=== PATIENT | female | born 1985 | race Caucasian/White ===

== ENCOUNTER → 2018-05-10 12:17 | Outpatient (CLI) | payer OTHER, SELFPAY ==
[2018-05-10 13:16] LABS: T4 Free Direct 0.79 ng/dL (0.76-1.46); Thyroid Stim Hormone (TSH) 2.09 uIU/mL (0.358-3.74)
== END ==
PROVIDERS: Family Provider Family Medicine; PCP Family Medicine; Visit Provider Obstetrics & Gynecology
DX: L65.9 Nonscarring hair loss, unspecified (principal)
CPT/HCPCS: 36415; 84439; 84443

== ENCOUNTER → 2018-06-20 09:08 | Outpatient (CLI) | payer OTHER, SELFPAY ==
[2018-06-20 09:47] LABS: Absolute Lymphocyte Count 1.65 X10^3/ul (0.83-4.51); Absolute Neutrophil Count 3.8 X10^3/uL (2.0-7.7); Basophil# 0.01 X10^3/uL; Basophil% 0.2 % (0-1); Eosinophil# 0.06 X10^3/uL; Hematocrit 40.6 % (37-47); Hemoglobin 13.6 g/dl (12.0-15.0); Lymphocyte # 1.65 X10^3/ul (4.0); Lymphocyte % 28.2 % (19-41); Mean Corp Hgb Conc 33.5 g/gl (32-36); Mean Corpuscular Hgb 29.8 pg (27.0-32.0); Mean Platelet Vol. 10.2 fl (6.2-12.0); Monocyte# 0.36 X10^3/uL; Monocyte% 6.2 % (0-10); Neutrophil # 3.76 X10^3/uL (2.7-7.7); Neutrophil % 64.2 % (47-70); Platelet Count 254 K/mm3 (150-450); RBC Distribution Width SD 38.9 fl (35.1-43.9); Red Blood Count 4.56 M/mm3 (4.2-5.4); White Blood Count 5.9 K/mm3 (4.4-11.0)
[2018-06-20 10:16] LABS: POSITIVE COUNT NO; POSITIVE DIFFERENTIAL NO; POSITIVE MORPHOLOGY NO
[2018-06-21 04:36] LABS: Rapid Plasmin Reagin (RPR) NONREACTIVE (NONREACTIVE)
[2018-06-21 11:12] LABS: HEPATITIS B SURFACE AG Negative (Negative)
[2018-06-21 12:26] LABS: HIV - WCH Non-Reactive (Nonreactive); Rubella IgG 15.8 IU/mL
== END ==
PROVIDERS: Family Provider Family Medicine; PCP Family Medicine; Visit Provider Obstetrics & Gynecology
DX: Z34.90 Encounter for supervision of normal pregnancy, unspecified, unspecified trimester (principal)
CPT/HCPCS: 36415; 85025; 86592; 86703; 86762; 86850; 86900; 87340

== ENCOUNTER → 2018-06-20 18:16 | Outpatient (CLI) | payer OTHER, SELFPAY ==
[2018-06-20 21:00] LABS: Chlamydia Trachomatis by PCR Negative (Negative); Neisserai gonorrhoeae by PCR Negative (Negative); Probe Check PASS; Sample Adequacy Control PASS; Specimen Processing Control PASS
== END ==
PROVIDERS: Visit Provider Obstetrics & Gynecology
DX: Z34.90 Encounter for supervision of normal pregnancy, unspecified, unspecified trimester (principal)
CPT/HCPCS: 87086; 87088; 87491; 87591

== ENCOUNTER → 2018-07-08 14:11 | Outpatient (CLI) | payer OTHER, SELFPAY | PROVIDERS: Family Provider Family Medicine; PCP Family Medicine; Visit Provider Obstetrics & Gynecology | DX: Z34.81 Encounter for supervision of other normal pregnancy, first trimester (principal) | CPT/HCPCS: 36415 ==

== ENCOUNTER → 2018-11-15 08:51 | Outpatient (CLI) | payer OTHER, SELFPAY ==
[2018-11-15 08:24] VITALS: BMI 31.9
[2018-11-15 09:58] LABS: Absolute Lymphocyte Count 1.49 X10^3/ul (0.83-4.51); Absolute Neutrophil Count 7.8 X10^3/uL (2.0-7.7); Eosinophil# 0.05 X10^3/uL; Eosinophils% 0.5 % (0-5); Hematocrit 34.4 % (37-47); Hemoglobin 11.5 g/dl (12.0-15.0); Lymphocyte # 1.49 X10^3/ul (4.0); Mean Corp Hgb Conc 33.4 g/gl (32-36); Mean Corpuscular Hgb 29.3 pg (27.0-32.0); Mean Corpuscular Volume 87.5 fL (81-99); Mean Platelet Vol. 10.3 fl (6.2-12.0); Monocyte# 0.58 X10^3/uL; Monocyte% 5.8 % (0-10); Neutrophil % 78.4 % (47-70); POSITIVE COUNT NO; POSITIVE DIFFERENTIAL NO; POSITIVE MORPHOLOGY NO; Platelet Count 236 K/mm3 (150-450); RBC Distribution Width SD 38.8 fl (35.1-43.9); Red Blood Count 3.93 M/mm3 (4.2-5.4)
[2018-11-15 10:05] LABS: Glucose Challenge Gest 1H 50g 123 mg/dL (70-140)
== END ==
PROVIDERS: Family Provider Family Medicine; PCP Family Medicine; Referring Provider Obstetrics & Gynecology; Visit Provider Obstetrics & Gynecology
DX: Z34.90 Encounter for supervision of normal pregnancy, unspecified, unspecified trimester (principal)
CPT/HCPCS: 36415; 82950; 85025

== ENCOUNTER 2018-12-13 09:28 | Outpatient (CLI) | payer OTHER, SELFPAY ==
[2018-12-13 09:05] VITALS: BMI 31.9
[2018-12-13 09:45] VITALS: BMI 33.8
--- NOTE | 2018-12-17 19:26 | OB.TRI.HP_ITS ---
- Problem List (1) Monochorionic diamniotic twin gestation Status: Acute Qualifiers: Comment: comanagement with MFM, q 4 week growth us and weekly bpp 32 weeks on; MFM US 11/28/18- growth q4wks, weekly NST after 32 weeks deliver at 37 weeks. (2) Status: Acute Qualifiers: Comment: NIPT normal. Anatomy survey performed but limited due to late gestational age. No gross anomalies. Persistent renal pelvis dilation Twin B- refer to treatment.Continue evaluation for twin to twin transfusion every 2 weeks. (3) Supervision of normal Status: Acute Qualifiers: Comment: PRR EDMUNDO 01/31/19 boys Amos Ledezma Sergio History of Present Illness Date of Service: 12/13/18 Was patient seen by the physician?: No Reason For Visit: NST History of Present Illness: nst Allergies No Known Allergies Allergy (Verified 12/13/18 09:46) - Pertinent Past Medical History Medical History: Past Medical History (Last Reviewed 12/13/18 @ 09:04 by Aileen Sampson) Abnormal Pap smear of cervix Surgical History: Past Surgical History (Last Reviewed 12/13/18 @ 09:04 by Aileen Sampson) History of colposcopy S/P dilation and curettage NST - FHR Rate Baby A Baseline: 140 Variability:: Moderate Accelerations:: 15 x 15 Decelerations:: None NST Reactive:: Yes FHR Category:: Category I Uterine Activity:: no regular - FHR Rate Baby B Baseline: 140 Variability:: Moderate Accelerations:: 15 x 15 Decelerations:: None NST Reactive:: Yes FHR Category:: Category I Impression/Plan reactive nst x 2
--- OUTSIDE RECORDS SUMMARY | 2019-02-16 17:00 | XMS RPT_ITS ---
:1985 Author Organization OHIP Support Name Relationship Address Phone NORM WYATT Unavailable [address] + [place] [address] KALEIDOSCOPE Unavailable [address] + [place] [address] EDMUNDO, NORM Unavailable [address] + [place] [address] KALEIDOSCOPE Unavailable [address] + [place] [address] EDMUNDO, NORM Unavailable [address] + [place] [address] KALEIDOSCOPE Unavailable [address] + [place] [address] EDMUNDO, SHWETA Unavailable [address] + [place] [address] EDMUNDO, SHWETA Unavailable [address] + [place] [address] EDMUNDO, NORM Unavailable [address] + [place] [address] KALEIDOSCOPE Unavailable [address] + [place] [address] EDMUNDO, NORM Unavailable [address] + [place] [address] KALEIDOSCOPE Unavailable [address] + [place] [address] EDMUNDO, SHWETA Unavailable [address] + [place] [address] EDMUNDO, NORM Unavailable [address] + [place] [address] KALEIDOSCOPE Unavailable [address] + [place] [address] EDMUNDO, SHWETA Unavailable [address] + [place] [address] EDMUNDO, NORM Unavailable [address] + [place] [address] KALEIDOSCOPE Unavailable [address] + [place] [address] EDMUNDO, NORM Unavailable [address] + [place] [address] KALEIDOSCOPE Unavailable [address] + [place] [address] EDMUNDO, SHWETA Unavailable [address] + [place] [address] EDMUNDO, SHWETA Unavailable [address] + [place] [address] EDMUNDO, NORM Unavailable [address] + [place] [address] KALEIDOSCOPE Unavailable [address] + [place] [address] EDMUNDO, SHWETA Unavailable [address] + [place] [address] EDMUNDO, NORM Unavailable [address] + [place] [address] KALEIDOSCOPE Unavailable [address] + [place] [address] EDMUNDO, SHWETA Unavailable [address] + [place] [address] EDMUNDO, NORM Unavailable [address] + [place] [address] KALEIDOSCOPE Unavailable [address] + [place] [address] EDMUNDO, SHWETA Unavailable [address] + [place] [address] EDMUNDO, SHWETA Unavailable [address] + [place] [address] EDMUNDO, NORM Unavailable [address] + [place] [address] KALEIDOSCOPE Unavailable [address] + [place] [address] EDMUNDO, NORM Unavailable [address] + [place] [address] KALEIDOSCOPE Unavailable [address] + [place] [address] EDMUNDO, NORM Unavailable [address] + [place] [address] KALEIDOSCOPE Unavailable [address] + [place] [address] EDMUNDO, NORM Unavailable [address] + [place] [address] KALEIDOSCOPE Unavailable [address] + [place] [address] EDMUNDO, NORM Unavailable [address] + [place] [address] KALEIDOSCOPE Unavailable [address] + [place] [address] EDMUNDO, NORM Unavailable [address] + [place] [address] KALEIDOSCOPE Unavailable [address] + [place] [address] EDMUNDO, NORM Unavailable [address] + [place] [address] KALDIDOSCOPE Unavailable [address] + [place] [address] EDMUNDO, NORM Unavailable [address] + [place] [address] RENAISSANCE SALON Unavailable . + [place] [address] EDMUNDO, NORM Unavailable [address] + [place] [id number] RENAISSANCE SALON Unavailable . + [place] [address] EDMUNDO, NORM Unavailable [address] [facility] [address] + [place] [address] RENAISSANCE SALON Unavailable / + [place] [address] Care Team Providers Name Role Phone MARTÍNEZ MARIAH Attending Unavailable SALENA RODRIGUEZ Referring Unavailable NO PRIMARY MD CATHLEEN Primary Care Unavailable TOMAS TELLEZ Attending Unavailable SALENA RODRIGUEZ Referring Unavailable NO PRIMARY MD CATHLEEN Primary Care Unavailable TOMAS TELLEZ Attending Unavailable MARCANTHONY, SALENA E Referring Unavailable NO PRIMARY CARE, Primary Care Unavailable YI ROJAS Attending Unavailable MARCANTHONY, SALENA E Referring Unavailable NO PRIMARY CARE, Primary Care Unavailable YI ROJAS Attending Unavailable MARCANTHONY, SALENA E Referring Unavailable NO PRIMARY CARE, Primary Care Unavailable TOMAS TELLEZ Attending Unavailable MARCANTHONY, SALENA E Referring Unavailable NO PRIMARY CARE, Primary Care Unavailable JASMINA KOCH Attending Unavailable MARCANTHONY, SALENA E Referring Unavailable NO PRIMARY CARE, Primary Care Unavailable MARIAH MARTÍNEZ Attending Unavailable MARCANTHONY, SALENA E Referring Unavailable NO PRIMARY CARE, Primary Care Unavailable TOMAS TELLEZ Attending Unavailable MARCANTHONY, SALENA E Referring Unavailable NO PRIMARY CARE, Primary Care Unavailable MARIAH MARTÍNEZ Attending Unavailable MARCANTHONY, SALENA E Referring Unavailable NO PRIMARY CARE, Primary Care Unavailable MARIAH MARTÍNEZ Attending Unavailable MARCANTHONY, SALENA E Referring Unavailable NO PRIMARY CARE, Primary Care Unavailable Marcanthony, Salena Attending Unavailable Jolliff, Giovana Referring Unavailable Marcanthony, Salena Attending Unavailable Marcanthony, Salena Referring Unavailable Jolliff, Giovana Primary Care Unavailable Marcanthony, Salena Attending Unavailable Jolliff, Giovana Referring Unavailable Courtney Vuong Attending Unavailable Jolliff, Giovana Referring Unavailable Marcanthony, Salena Attending Unavailable Marcanthony, Salena Referring Unavailable Jolliff, Giovana Primary Care Unavailable Marcanthony, Salena Attending Unavailable Marcanthony, Salena Referring Unavailable Jolliff, Giovana Primary Care Unavailable Marcanthony, Salena Consulting Unavailable Marcanthony, Salena Attending Unavailable Marcanthony, Salena Referring Unavailable Jolliff, Giovana Primary Care Unavailable Marcanthony, Salena Attending Unavailable Marcanthony, Salena Referring Unavailable Jolliff, Giovana Primary Care Unavailable Marcanthony, Salena Consulting Unavailable Marcanthony, Salena Attending Unavailable Jolliff, Giovana Referring Unavailable Jolliff, Giovana Primary Care Unavailable Marcanthony, Salena Attending Unavailable Marcanthony, Salena Referring Unavailable Jolliff, Giovana Primary Care Unavailable Marcanthony, Salena Attending Unavailable Jolliff, Giovana Referring Unavailable Jolliff, Giovana Primary Care Unavailable Marcanthony, Salena Attending Unavailable Marcanthony, Salena Referring Unavailable Jolliff, Giovana Primary Care Unavailable Marcanthony, Salena Attending Unavailable Jolliff, Giovana Primary Care Unavailable Marcanthony, Salena Referring Unavailable Marcanthony, Salena Attending Unavailable Jolliff, Giovana Referring Unavailable Marcanthony, Salena Attending Unavailable Marcanthony, Salena Referring Unavailable Jolliff, Giovana Primary Care Unavailable Marcanthony, Salena Attending Unavailable Jolliff, Giovana Referring Unavailable Jolliff, Giovana Primary Care Unavailable Marcanthony, Salena Attending Unavailable Jolliff, Giovana Referring Unavailable Marcanthony, Salena Attending Unavailable Jolliff, Giovana Referring Unavailable Marcanthony, Salena Attending Unavailable Jolliff, Giovana Referring Unavailable [place], Courtney Attending Unavailable Jolliff, Giovana Referring Unavailable Marcanthony, Salena Attending Unavailable Jolliff, Giovana Referring Unavailable PROBLEMS PROBLEMS DATE TYPE CONDITION / CODE ATTENDING STATUS SOURCE 12/13/2018 Unknown O30.033 - Twin Courtney Vuong Active [place] , [facility] monochorionic/diam Hospital niotic, third Repository trimester / O30.033(ICD-10) 12/13/2018 Unknown Z34.03 - Encounter Courtney Vuong Active [place] for supervision of [facility] normal first Hospital , third Repository trimester / Z34.03(ICD-10) 12/13/2018 Unknown Z3A.33 - 33 weeks Courtney Vuong Active [place] gestation of [facility] / Hospital Z3A.33(ICD-10) Repository 11/29/2018 Unknown Z3A.31 - 31 weeks Marcanthony, Active [place] gestation of [facility] / Hospital Z3A.31(ICD-10) Repository 11/15/2018 Unknown Z34.90 - Encounter Marcanthony, Active [place] for supervision of [facility] normal , Hospital unspecified, Repository unspecified trimester / Z34.90(ICD-10) 11/15/2018 Unknown Z23 - Encounter Marcanthony, Active [place] for immunization / [facility] Z23(ICD-10) Hospital Repository 11/15/2018 Unknown Z3A.29 - 29 weeks Marcanthony, Active [place] gestation of [facility] / Hospital Z3A.29(ICD-10) Repository 11/15/2018 Unknown Z36.9 - Encounter Marcanthony, Active [place] for [facility] screening, Hospital unspecified / Repository Z36.9(ICD-10) 10/16/2018 Unknown O30.032 - Twin Marcanthony, Active [place] , [facility] monochorionic/diam Hospital niotic, second Repository trimester / O30.032(ICD-10) 10/16/2018 Unknown Z34.02 - Encounter Marcanthony, Active [place] for supervision of [facility] normal first Hospital , second Repository trimester / Z34.02(ICD-10) 10/16/2018 Unknown Z3A.24 - 24 weeks Marcanthony, Active [place] gestation of [facility] / Hospital Z3A.24(ICD-10) Repository 09/17/2018 Unknown Z3A.20 - 20 weeks Marcanthony, Active [place] gestation of [facility] / Hospital Z3A.20(ICD-10) Repository 08/20/2018 Unknown Z3A.16 - 16 weeks Marcanthony, Active [place] gestation of [facility] / Hospital Z3A.16(ICD-10) Repository 07/22/2018 Unknown Z34.01 - Encounter Marcanthony, Active [place] for supervision of [facility] normal first Hospital , first Repository trimester / Z34.01(ICD-10) 07/22/2018 Unknown O30.031 - Twin Marcanthony, Active [place] , [facility] monochorionic/diam Hospital niotic, first Repository trimester / O30.031(ICD-10) 07/22/2018 Unknown Z3A.12 - 12 weeks Marcanthony, Active [place] gestation of [facility] / Hospital Z3A.12(ICD-10) Repository 06/20/2018 Unknown O30.091 - Twin Marcanthony, Active [place] , unable [facility] to determine Hospital number of placenta Repository and number of amniotic sacs, first trimester / O30.091(ICD-10) 06/20/2018 Unknown Z3A.01 - Less than Marcanthony, Active [place] 8 weeks gestation [facility] of / Hospital Z3A.01(ICD-10) Repository 05/10/2018 Unknown L65.9 - Marcanthony, Active [place] Nonscarring hair [facility] loss, unspecified Hospital / L65.9(ICD-10) Repository PROCEDURES PROCEDURES No Procedure Records FoundRESULTS RESULTS INVASIVE PHYSICIAN OFFICE VISIT Observed: 12/13/2018 Status: F Source: [place] REPORT 9:21 AM [facility] REPOSITORY [facility] [address] [place] [address] OFFICE VISIT Date of Service: 12/13/18 MR#: [id number] Acct: [id number] Name: SWHETA WYATT Rep #: [id number] : 1985 Provider: JANEEN Vuong Age/Sex: 33/F Location: [facility] [place] Status: Signed Intake Vital Signs12/13/18 Body Mass Index (BMI) 31.9 12/13/18 Height 5 ft 7 in 12/13/18 Weight: 217 lb 12/13/18 Body Mass Index (BMI) 34.0 12/13/18 Blood Pressure 110/72 Intake Visit Reasons: 32 WEEKS Map Colorer Required: No Is patient in pain?: No Allergies No Known Allergies Allergy (Verified 12/13/18 09:04) Medications docosahexanoic acid 200 mg capsule mg PO 05/10/18 [History Confirmed 12/13/18] Last Menstral Period: 03/30/18 Zika: Zika virus screening: Negative : No PFSH PFSH Medical History Abnormal Pap smear of cervix (Acute) Surgical History History of colposcopy (Resolved) S/P dilation and curettage (Resolved) Family History Grandfather Lymphoma Mother Hypertension Social History Smoking Status: Never smoker alcohol intake: current details: occasionally substance use type: does not use caffeine: No what type of physical activity do you participate in: other details: crossfit frequency: 5-6 times per week seatbelt use: always do you feel safe at home: Yes additional social history: Xvkkprs-Dvcddk-Hadcvxzfojrwbu of [employer] 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 OB Visit EDMUNDO Calculator Estimated Delivery Date 01/31/19 Based on LMP (certain) 04/26/18 Current WG 33w 0d Number 2 Expected Delivery Route/Plan Specific Issue/Plans flu vaccine: given tdap vaccine: given rhogam: na LARC form signed: declines labor support person: Norm pain management: epidural cut cord/dad catch: yes? : yes PP control planned: pill discussed possible routes of delivery and associated risks: [] special requests: [] Initial Weight: 163 lb Date Weight BP Urine PFHR FuHt Pres MCTX DilatioFetal SVisit NProvideComment rot ov n t ote r s EGA Ef Gluco faced se 06/20/1163 lb A A A A A 8 6 oz (+ 7w6 oz) B B B B B 6d Visit Notes Visit Date: 12/13/18 NO VB, LOF. Good FM. US and BPP yesterday both 07/03 MATTHEW LottC on 12/13/18 Visit Date: 11/29/18 no vb cramping lof good fm x 2. discussed labor preferences and control Salena Rodriguez MD on 11/29/18 Visit Date: 11/15/18 no vb lof good fm no regular ctx Salnea Rodriguez MD on 11/15/18 Visit Date: 10/16/18 no vb lof good fm no regular ctx Salena Rodriguez MD on 10/16/18 Visit Date: 10/07/18 Work in, weight gain vs edema. No headache, vision changes. Good FM. No VB, LOF, CTX GREG Lott on 10/07/18 Visit Date: 09/17/18 no vb cramping- reviewed us. discussed if mono di versus di di. reviewed pyelectasis. Salena Rodriguez MD on 09/17/18 Visit Date: 08/20/18 no vb lof doing wel normal nipt Salena Rodriguez MD on 08/20/18 doing well n ocomplaints Salena Rodriguez MD on 08/20/18 Visit Date: 07/22/18 No visit notes to display Visit Date: 07/08/18 no vb crmaping, desires NIPT screening Salena Rodriguez MD on 07/11/18 Visit Date: 06/20/18 No visit notes to display ACOG First Trimester First Trimester: Desire for , Alcohol, Tobacco Cessation, Illicit/Recreational Drug/Substance Use, Intimate Partner Violence, Barriers to care, Unstable Housing, Communication Barriers, Environmental/Work Hazards, Anticipated Course of Care, Toxoplasmosis Precations, Use of Any medications, Sexual activity, Exercise, Dental Care, Sauna/Hot tub use, Seat Belt use, Childbirth classes/Hospital facilities, , Travel, Indications for US and Screening for Aneuploidy Second Trimester Second Trimester: Signs and Symptoms of Labor, Selecting a care provider, Reproductive Life Planning, Care Planning, Tobacco Cessation, Depression/Anxiety and Intimate Partner Violence Diagnostics Diagnostics Labs Blood Type O POSITIVE 06/20/18 Antibody Screen NEGATIVE 06/20/18 Hct 34.4 % (37-47) L 11/15/18 Hgb 11.5 g/dl (12.0-15.0) L 11/15/18 Rubella IgG Antibody 15.8 IU/mL 06/20/18 RPR NONREACTIVE (NONREACTIVE) 06/20/18 Hep Bs Antigen Negative (Negative) 06/20/18 Chlam trachomat DNA PCR Negative (Negative) 06/20/18 N.gonorrhoeae DNA (PCR) Negative (Negative) 06/20/18 Glucose 1 Hr 50 gm 123 mg/dL (70-140) 11/15/18 Miscellaneous Test 07/08/18 Details: HIV: Urine Culture: Sequential Screen: NIPT Screen: Assessment AND Plan Problems 1. Encounter for supervision of normal first in third trimester Z34.03 PRR EDMUNDO 01/31/19 boys Amos Ledezma Norm 2. 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 3. 33 weeks gestation of Z3A.33 NIPT normal. Anatomy survey performed but limited due to late gestational age. No gross anomalies. Persistent renal pelvis dilation Twin B-refer to treatment.Continue evaluation for twin to twin transfusion every 2 weeks. Plan Orders placed: NST at WP today Weekly BPP with MFM, weekly NST, growth US every 2 wk Reviewed of labor precautions, movement/kick counts ACOG trimester education reviewed and updated See problem list details for updated plan of care Gestational age appropriate handout given RTO: 2 weeks Orders Orders: Coding Level of Care Code OB Routine Diagnoses Encounter for supervision of normal first in third trimester Z34.03 Normal : normal first Trimester: third trimester Monochorionic diamniotic twin gestation in third trimester O30.033 Trimester: third trimester 33 weeks gestation of Z3A.33 Weeks of gestation: 33 weeks 12/13/18 0921 <Electronically signed by Courtney GARZA> Date Courtney GARZA Cosigner Signature: Date (if applicable) CC: INVASIVE PHYSICIAN OFFICE VISIT Observed: 11/29/2018 Status: F Source: [place] REPORT 9:18 AM [facility] REPOSITORY [facility] [address] [place] [address] OFFICE VISIT Date of Service: 11/29/18 MR#: [id number] Acct: [id number] Name: EDMUNDOSHWETA Heriberto Rep #: [id number] : 1985 Provider: Salena Rodriguez MD Age/Sex: 33/F Location[place] [facility] Status: Signed Intake Vital Signs11/29/18 Body Mass Index (BMI) 31.9 11/29/18 Height 5 ft 7 in 11/29/18 Weight: 210 lb 11/29/18 Body Mass Index (BMI) 32.8 11/29/18 Blood Pressure 108/58 L Intake Visit Reasons: 30 WEEKS Chief Complaint: est ob Map Colorer Required: No Is patient in pain?: No Allergies No Known Allergies Allergy (Verified 11/29/18 08:47) Medications docosahexanoic acid 200 mg capsule mg PO 05/10/18 [History Confirmed 11/29/18] Last Menstral Period: 03/30/18 Zika: Zika virus screening: Negative : No PFSH PFSH Medical History Abnormal Pap smear of cervix (Acute) Surgical History History of colposcopy (Resolved) S/P dilation and curettage (Resolved) Family History Grandfather Lymphoma Mother Hypertension Social History Smoking Status: Never smoker alcohol intake: current details: occasionally substance use type: does not use caffeine: No what type of physical activity do you participate in: other details: crossfit frequency: 5-6 times per week seatbelt use: always do you feel safe at home: Yes additional social history: Cbkrhaa-Axisdb-Jwistrjwrfvgsg of [employer] 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 OB Visit EDMUNDO Calculator Estimated Delivery Date 01/31/19 Based on LMP (certain) 04/26/18 Current WG 31w 0d Number 2 Expected Delivery Route/Plan Specific Issue/Plans flu vaccine: given tdap vaccine: given rhogam: na LARC form signed: declines labor support person: Norm pain management: epidural cut cord/dad catch: yes? : yes PP control planned: pill discussed possible routes of delivery and associated risks: [] special requests: [] Initial Weight: 163 lb Date Weight BP Urine PrFHR FuHt Pres MoCTX DilationFetal StVisit NoProviderComments E ot v te GA G Effac lucose ed Visit Notes Visit Date: 11/29/18 no vb cramping lof good fm x 2. discussed labor preferences and control Salena Rodriguez MD on 11/29/18 Visit Date: 11/15/18 no vb lof good fm no regular ctx Salena Rodriguez MD on 11/15/18 Visit Date: 10/16/18 no vb lof good fm no regular ctx Salena Rodriguez MD on 10/16/18 Visit Date: 10/07/18 Work in, weight gain vs edema. No headache, vision changes. Good FM. No VB, LOF, CTX GREG Lott on 10/07/18 Visit Date: 09/17/18 no vb cramping- reviewed us. discussed if mono di versus di di. reviewed pyelectasis. Salena Rodriguez MD on 09/17/18 Visit Date: 08/20/18 no vb lof doing wel normal nipt Salena Rodriguez MD on 08/20/18 doing well n ocomplaints Salena Rodriguez MD on 08/20/18 Visit Date: 07/22/18 No visit notes to display Visit Date: 07/08/18 no vb crmaping, desires NIPT screening Salena Rodriguez MD on 07/11/18 Visit Date: 06/20/18 No visit notes to display ACOG First Trimester First Trimester: Desire for , Alcohol, Tobacco Cessation, Illicit/Recreational Drug/Substance Use, Intimate Partner Violence, Barriers to care, Unstable Housing, Communication Barriers, Environmental/Work Hazards, Anticipated Course of Care, Toxoplasmosis Precations, Use of Any medications, Sexual activity, Exercise, Dental Care, Sauna/Hot tub use, Seat Belt use, Childbirth classes/Hospital facilities, , Travel, Indications for US and Screening for Aneuploidy Second Trimester Second Trimester: Signs and Symptoms of Labor, Selecting a care provider, Reproductive Life Planning, Care Planning, Tobacco Cessation, Depression/Anxiety and Intimate Partner Violence Diagnostics Diagnostics Labs Blood Type O POSITIVE 06/20/18 Antibody Screen NEGATIVE 06/20/18 Hct 34.4 % (37-47) L 11/15/18 Hgb 11.5 g/dl (12.0-15.0) L 11/15/18 Rubella IgG Antibody 15.8 IU/mL 06/20/18 RPR NONREACTIVE (NONREACTIVE) 06/20/18 Hep Bs Antigen Negative (Negative) 06/20/18 Chlam trachomat DNA PCR Negative (Negative) 06/20/18 N.gonorrhoeae DNA (PCR) Negative (Negative) 06/20/18 Glucose 1 Hr 50 gm 123 mg/dL (70-140) 11/15/18 Miscellaneous Test 07/08/18 Details: HIV: Urine Culture: Sequential Screen: NIPT Screen: Results [id number] Office Urine Glucose Negative Last Edit by Dalia Glynn on 11/29/18 08:50 Office Urine Protein Negative Last Edit by Dalia Glynn on 11/29/18 08:50 Assessment AND Plan Problems 1. Monochorionic diamniotic twin gestation in third trimester O30.033 comanagement with MFM, q 4 week growth us and weekly bpp 32 weeks on 2. 31 weeks gestation of Z3A.31 NIPT normal. Anatomy survey performed but limited due to late gestational age. No gross anomalies. Persistent renal pelvis dilation Twin B-refer to treatment.Continue evaluation for twin to twin transfusion every 2 weeks. 3. Encounter for supervision of normal first in third trimester Z34.03 PRR EDMUNDO 01/31/19 watson Ledezma Norm Plan movement and labor precautions reviewed. ACOG trimester education reviewed and updated. see problem list details for updated plan management information and see below for orders placed at this visit. GA appropriate handout given. Orders Orders: Coding Level of Care Code OB Routine Diagnoses Monochorionic diamniotic twin gestation in third trimester O30.033 Trimester: third trimester 31 weeks gestation of Z3A.31 Weeks of gestation: 31 weeks Encounter for supervision of normal first in third trimester Z34.03 Normal : normal first Trimester: third trimester 11/29/18 0918 <Electronically signed by Salena Rodriguez MD> Date Salena Rodriguez MD Cosigner Signature: Date (if applicable) CC: CBC W/DIFF, AUTOMATED Collected: 11/15/2018 Status: F Source: [place] 9:32 AM [facility] REPOSITORY TYPE CODE TESTS RESULT OUT OF RANGE REFERENCE UNITS LAB L100.1000 4.4-11.0 K/mm3 Normal WBC 10.0 LAB L100.1200 4.2-5.4 M/mm3 Low RBC 3.93 LAB L100.1300 12.0-15.0 g/dl Low HGB 11.5 LAB L100.1400 37-47 % Low HCT 34.4 LAB L100.1500 81-99 fL Normal MCV 87.5 LAB L100.1600 27.0-32.0 pg Normal MCH 29.3 LAB L100.1700 32-36 g/gl Normal MCHC 33.4 LAB L100.1810 11.6-14.6 % Normal RDW CV 12.0 LAB L100.1820 35.1-43.9 fl Normal RDW SD 38.8 LAB L100.1900 150-450 K/mm3 Normal PLT 236 LAB L100.2000 6.2-12.0 fl Normal MPV 10.3 LAB L100.2100 47-70 % High NEUT% 78.4 LAB L100.2200 19-41 % Low LY% 15.0 LAB L100.2300 0-10 % Normal MONO% 5.8 LAB L100.2400 0-5 % Normal EO% 0.5 LAB L100.2500 0-1 % Normal BASO% 0.0 LAB L100.2550 0.0-0.9 % Normal IM GRAN % 0.300 Result Comment: IG% - Immature Granulocytes (promyelocytes, myelocytes and metamyelocytes) > 1% indicates that a LEFT SHIFT is Present. LAB L100.2620 2.0-7.7 X10 3/uL High Absolute Neut 7.8 LAB L100.2720 0.83-4.51 X10 3/ul Normal Absolute Lymph 1.49 Performed By: #### L100.0100 #### [facility] [address] [place], [address] GLUCOSE CHALLENGE GEST Collected: 11/15/2018 Status: F Source: [place] 1H 50G 9:32 AM [facility] REPOSITORY TYPE CODE TESTS RESULT OUT OF RANGE REFERENCE UNITS LAB L501.0250 70-140 mg/dL Normal GLU GEST 123 50g 1H Performed By: #### L501.0250 #### [facility] [address] [place], [address] INVASIVE PHYSICIAN OFFICE VISIT Observed: 11/15/2018 Status: F Source: [place] REPORT 8:48 AM [facility] REPOSITORY [facility] [address] [place] [address] OFFICE VISIT Date of Service: 11/15/18 MR#: [id number] Acct: [id number] Name: SHWETA WYATT Rep #: [id number] : 1985 Provider: Salena Rodriguez MD Age/Sex: 33/F [facility] [facility] [place] Status: Signed with Addenda ADDENDUM by Dalia Glynn on 11/15/18 at 0848 OFFICE PROCEDURES Office Procedure Documentation entered by Dalia Glynn 11/15/18 08:48: Immunizations Boostrix Tdap Performing Provider: Salena Rodriguez MD Administered by: Dalia Glynn on 11/15/18 08:47 Dose Route Admin Location Lot Number Expiration Date NDC Pbx Supervisor 0.5 mL IM Left Arm (SQ) [id number] 09/14/25 [id number] [employer] VIS Given Date VIS Publication Date 11/15/18 01/19/15 Eligibility Eligibility Date 11/15/18 0848 <Electronically signed by Dalia Glynn > Date Dalia Glynn cc: * Signed Intake Vital Signs11/15/18 Height 5 ft 7 in 11/15/18 Weight: 204 lb 11/15/18 Body Mass Index (BMI) 31.9 11/15/18 Body Mass Index (BMI) 30.7 Intake Visit Reasons: 27 weeks Chief Complaint: est ob Map Colorer Required: No Is patient in pain?: No Allergies No Known Allergies Allergy (Verified 11/15/18 08:24) Medications docosahexanoic acid 200 mg capsule mg PO 05/10/18 [History Confirmed 11/15/18] Last Menstral Period: 03/30/18 Zika: Zika virus screening: Negative : No PFSH PFSH Medical History Abnormal Pap smear of cervix (Acute) Surgical History History of colposcopy (Resolved) S/P dilation and curettage (Resolved) Family History Grandfather Lymphoma Mother Hypertension Social History Smoking Status: Never smoker alcohol intake: current details: occasionally substance use type: does not use caffeine: No what type of physical activity do you participate in: other details: crossfit frequency: 5-6 times per week seatbelt use: always do you feel safe at home: Yes additional social history: Aqdiben-Ecjfpk-Nsevfvgyvcwroq of [employer] 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 OB Visit EDMUNDO Calculator Estimated Delivery Date 01/31/19 Based on LMP (certain) 04/26/18 Current WG 29w 0d Number 2 Expected Delivery Route/Plan Initial Weight: 163 lb Date Weight BP Urine PrFHR FuHt Pres MoCTX DilationFetal StVisit NoProviderComments E ot v te GA G Effac lucose ed Visit Notes Visit Date: 11/15/18 no vb lof good fm no regular ctx Salena Rodriguez MD on 11/15/18 Visit Date: 10/16/18 no vb lof good fm no regular ctx Salena Rodriguez MD on 10/16/18 Visit Date: 10/07/18 Work in, weight gain vs edema. No headache, vision changes. Good FM. No VB, LOF, CTX GREG Lott on 10/07/18 Visit Date: 09/17/18 no vb cramping- reviewed us. discussed if mono di versus di di. reviewed pyelectasis. Salena Rodriguez MD on 09/17/18 Visit Date: 08/20/18 no vb lof doing wel normal nipt Salena Rodriguez MD on 08/20/18 doing well n ocomplaints Salena Rodriguez MD on 08/20/18 Visit Date: 07/22/18 No visit notes to display Visit Date: 07/08/18 no vb crmaping, desires NIPT screening Salena Rodriguez MD on 07/11/18 Visit Date: 06/20/18 No visit notes to display ACOG First Trimester First Trimester: Desire for , Alcohol, Tobacco Cessation, Illicit/Recreational Drug/Substance Use, Intimate Partner Violence, Barriers to care, Unstable Housing, Communication Barriers, Environmental/Work Hazards, Anticipated Course of Care, Toxoplasmosis Precations, Use of Any medications, Sexual activity, Exercise, Dental Care, Sauna/Hot tub use, Seat Belt use, Childbirth classes/Hospital facilities, , Travel, Indications for US and Screening for Aneuploidy Diagnostics Diagnostics Labs Blood Type O POSITIVE 06/20/18 Antibody Screen NEGATIVE 06/20/18 Hct 40.6 % (37-47) 06/20/18 Hgb 13.6 g/dl (12.0-15.0) 06/20/18 Pap Smear Positive A 06/26/13 Rubella IgG Antibody 15.8 IU/mL 06/20/18 RPR NONREACTIVE (NONREACTIVE) 06/20/18 Hep Bs Antigen Negative (Negative) 06/20/18 Chlam trachomat DNA PCR Negative (Negative) 06/20/18 N.gonorrhoeae DNA (PCR) Negative (Negative) 06/20/18 Miscellaneous Test 07/08/18 Details: HIV: Urine Culture: Sequential Screen: NIPT Screen: Assessment AND Plan Problems 1. Monochorionic diamniotic twin gestation in third trimester O30.033 comanagement with MFM, q 4 week growth us and weekly bpp 32 weeks on 2. 29 weeks gestation of Z3A.29 NIPT normal. needs AFP screening at 16-18. Anatomy survey performed but limited due to late gestational age. No gross anomalies. Pyelectasis is no longer visualized for twin A. Weekly NST's at 32 weeks and delivery at 37 weeks. 3. screening encounter Z36.9 Low risk- monozygotic identical twins- Males. fraction 12.4% Patient and her to look up the sex on the website. 4. Encounter for supervision of normal first in third trimester Z34.03 PRR EDMUNDO 01/31/19 boys Amos Ledezma Norm Plan movement and labor precautions reviewed. ACOG trimester education reviewed and updated. see problem list details for updated plan management information and see below for orders placed at this visit. [place] appropriate handout given. Orders Orders: Medications New: Coding Level of Care Code OB Routine Diagnoses Monochorionic diamniotic twin gestation in third trimester O30.033 Trimester: third trimester 29 weeks gestation of Z3A.29 Weeks of gestation: 29 weeks screening encounter Z36.9 Encounter for supervision of normal first in third trimester Z34.03 Normal : normal first Trimester: third trimester 11/15/18 0836 <Electronically signed by Salena Rodriguez MD> Date Salena Rodriguez MD Cosigner Signature: Date (if applicable) CC: INVASIVE PHYSICIAN OFFICE VISIT Observed: 10/16/2018 Status: F Source: JOSEE REPORT 11:43 AM [facility] [address] [place] [address] OFFICE VISIT Date of Service: 10/16/18 MR#: [id number] Acct: [id number] Name: SHWETA WYATT Rep #: [id number] : 1985 Provider: Salena Rodriguez MD Age/Sex: 33/F [place] [facility] Status: Signed Intake Vital Signs10/16/18 Height 5 ft 7 in 10/16/18 Weight: 196 lb 10/16/18 Body Mass Index (BMI) 30.7 10/16/18 Blood Pressure 110/62 Intake Visit Reasons: 23 weeks Chief Complaint: est ob Map Colorer Required: No Is patient in pain?: No Allergies No Known Allergies Allergy (Verified 10/16/18 11:23) Medications docosahexanoic acid 200 mg capsule mg PO 05/10/18 [History Confirmed 10/16/18] Last Menstral Period: 03/30/18 Zika: Zika virus screening: Negative : No PFSH PFSH Medical History Abnormal Pap smear of cervix (Acute) Surgical History History of colposcopy (Resolved) S/P dilation and curettage (Resolved) Family History Grandfather Lymphoma Mother Hypertension Social History Smoking Status: Never smoker alcohol intake: current details: occasionally substance use type: does not use caffeine: No what type of physical activity do you participate in: other details: crossfit frequency: 5-6 times per week seatbelt use: always do you feel safe at home: Yes additional social history: Ieoymcu-Lgbbwv-Xduqixwiazxozt of [employer] 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 OB Visit EDMUNDO Calculator Estimated Delivery Date 01/31/19 Based on LMP (certain) 04/26/18 Current WG 24w 5d Number 2 Expected Delivery Route/Plan Initial Weight: 163 lb Date Weight BP Urine PrFHR FuHt Pres MoCTX DilationFetal StVisit NoProviderComments E ot v te GA G Effac lucose ed Visit Notes Visit Date: 10/16/18 no vb lof good fm no regular ctx Salena Rodriguez MD on 10/16/18 Visit Date: 10/07/18 Work in, weight gain vs edema. No headache, vision changes. Good FM. No VB, LOF, CTX GREG Lott on 10/07/18 Visit Date: 09/17/18 no vb cramping- reviewed us. discussed if mono di versus di di. reviewed pyelectasis. Salena Rodriguez MD on 09/17/18 Visit Date: 08/20/18 no vb lof doing wel normal nipt Salena Rodriguez MD on 08/20/18 doing well n ocomplaints Salena Rodriguze MD on 08/20/18 Visit Date: 07/22/18 No visit notes to display Visit Date: 07/08/18 no vb crmaping, desires NIPT screening Salena Rodriguez MD on 07/11/18 Visit Date: 06/20/18 No visit notes to display ACOG First Trimester First Trimester: Desire for , Alcohol, Tobacco Cessation, Illicit/Recreational Drug/Substance Use, Intimate Partner Violence, Barriers to care, Unstable Housing, Communication Barriers, Environmental/Work Hazards, Anticipated Course of Care, Toxoplasmosis Precations, Use of Any medications, Sexual activity, Exercise, Dental Care, Sauna/Hot tub use, Seat Belt use, Childbirth classes/Hospital facilities, , Travel, Indications for US and Screening for Aneuploidy Diagnostics Diagnostics Labs Blood Type O POSITIVE 06/20/18 Antibody Screen NEGATIVE 06/20/18 Hct 40.6 % (37-47) 06/20/18 Hgb 13.6 g/dl (12.0-15.0) 06/20/18 Pap Smear Positive A 06/26/13 Rubella IgG Antibody 15.8 IU/mL 06/20/18 RPR NONREACTIVE (NONREACTIVE) 06/20/18 Hep Bs Antigen Negative (Negative) 06/20/18 Chlam trachomat DNA PCR Negative (Negative) 06/20/18 N.gonorrhoeae DNA (PCR) Negative (Negative) 06/20/18 Miscellaneous Test 07/08/18 Details: HIV: Urine Culture: Sequential Screen: NIPT Screen: Office Meds Flucelvax Quad [id number] (PF) Performing Provider: Salena Rodriguez MD Administered by: Dalia Glynn on 10/16/18 11:25 Dose Route Admin Location Lot Number Expiration Date [facility] Pbx Supervisor 60 mcg IM right arm IM [id number] 05/25/19 35588-079-59 [employer] Assessment AND Plan Problems 1. Monochorionic diamniotic twin gestation in second trimester O30.032 comanagement with MFM 2. 24 weeks gestation of Z3A.24 NIPT normal. needs AFP screening at 16-18. Anatomy survey performed but limited due to late gestational age. No gross anomalies. Pyelectasis is no longer visualized for twin A. Weekly NST's at 32 weeks and delivery at 37 weeks. 3. screening encounter Z36.9 Low risk- monozygotic identical twins- Males. fraction 12.4% Patient and her to look up the sex on the website. 4. Encounter for supervision of normal first in second trimester Z34.02 PRR EDMUNDO 01/31/19 watson Ledezma Norm Plan movement and labor precautions reviewed. ACOG trimester education reviewed and updated. see problem list details for updated plan management information and see below for orders placed at this visit. GA appropriate handout given. Orders Orders: Medications Discontinued: Flucelvax Quad 3220-3478 (PF) (flu vac qs 2018(4 yr60 mcg (0.5 mL) IM ONCE 1 mL 0RF NS Z23 up)CD(PF)) Discontinued Reason: Office Medicat ion has been Documented as given Coding Level of Care Code OB Routine Diagnoses Monochorionic diamniotic twin gestation in second trimester O30.032 Trimester: second trimester 24 weeks gestation of Z3A.24 Weeks of gestation: 24 weeks screening encounter Z36.9 Encounter for supervision of normal first in second trimester Z34.02 Normal : normal first Trimester: second trimester 10/16/18 1143 <Electronically signed by Salena Rodriguez MD> Date Salena Rodriguez MD [facility] Signature: Date (if applicable) CC: INVASIVE PHYSICIAN OFFICE VISIT Observed: 10/07/2018 Status: F Source: JOSEE REPORT 2:27 PM [facility] REPOSITORY [facility] [address] [place] [address] OFFICE VISIT Date of Service: 10/07/18 MR#: [id number] Acct: [id number] Name: SHWETA WYATT Rep #: [id number] : 1985 Provider: JANEEN Vuong Age/Sex: 33/F Location[place] [facility] Status: Signed Intake Vital Signs10/07/18 Height 5 ft 7 in 10/07/18 Weight: 194 lb 4 oz 10/07/18 Body Mass Index (BMI) 30.4 10/07/18 Blood Pressure 124/78 H Intake Visit Reasons: Bp check and urine Allergies No Known Allergies Allergy (Verified 10/07/18 14:04) Medications docosahexanoic acid 200 mg capsule mg PO 05/10/18 [History Confirmed 10/07/18] Last Menstral Period: 03/30/18 Zika: Zika virus screening: Negative : No PFSH PFSH Medical History Abnormal Pap smear of cervix (Acute) Surgical History History of colposcopy (Resolved) S/P dilation and curettage (Resolved) Family History Grandfather Lymphoma Mother Hypertension Social History Smoking Status: Never smoker alcohol intake: current details: occasionally substance use type: does not use caffeine: No what type of physical activity do you participate in: other details: crossfit frequency: 5-6 times per week seatbelt use: always do you feel safe at home: Yes additional social history: Xcgeooa-Wasqai-Yfqvwvpcialbpm of [employer] 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 OB Visit EDMUNDO Calculator Estimated Delivery Date 01/31/19 Based on LMP (certain) 04/26/18 Current WG 23w 3d Number 2 Expected Delivery Route/Plan Initial Weight: 163 lb Date Weight BP Urine PFHR FuHt Pres MCTX DilatioFetal SVisit NProvideComment rot ov n t ote r s EGA Ef Gluco faced se 06/20/1163 lb A A A A A 8 6 oz (+ 7w6 oz) B B B B B 6d Visit Notes Visit Date: 10/07/18 Work in, weight gain vs edema. No headache, vision changes. Good FM. No VB, LOF, CTX Courtney Vuong SPEAKER MOUNTER-C on 10/07/18 Visit Date: 09/17/18 no vb cramping- reviewed us. discussed if mono di versus di di. reviewed pyelectasis. Salena Rodriguez MD on 09/17/18 Visit Date: 08/20/18 no vb lof doing wel normal nipt Salena Rodriguez MD on 08/20/18 doing well n ocomplaints Salena Rodriguez MD on 08/20/18 Visit Date: 07/22/18 No visit notes to display Visit Date: 07/08/18 no vb crmaping, desires NIPT screening Salena Rodriguez MD on 07/11/18 Visit Date: 06/20/18 No visit notes to display ACOG First Trimester First Trimester: Desire for , Alcohol, Tobacco Cessation, Illicit/Recreational Drug/Substance Use, Intimate Partner Violence, Barriers to care, Unstable Housing, Communication Barriers, Environmental/Work Hazards, Anticipated Course of Care, Toxoplasmosis Precations, Use of Any medications, Sexual activity, Exercise, Dental Care, Sauna/Hot tub use, Seat Belt use, Childbirth classes/Hospital facilities, , Travel, Indications for US and Screening for Aneuploidy Diagnostics Diagnostics Labs Blood Type O POSITIVE 06/20/18 Antibody Screen NEGATIVE 06/20/18 Hct 40.6 % (37-47) 06/20/18 Hgb 13.6 g/dl (12.0-15.0) 06/20/18 Pap Smear Positive A 06/26/13 Rubella IgG Antibody 15.8 IU/mL 06/20/18 RPR NONREACTIVE (NONREACTIVE) 06/20/18 Hep Bs Antigen Negative (Negative) 06/20/18 Chlam trachomat DNA PCR Negative (Negative) 06/20/18 N.gonorrhoeae DNA (PCR) Negative (Negative) 06/20/18 Miscellaneous Test 07/08/18 Details: HIV: Urine Culture: Sequential Screen: NIPT Screen: Assessment AND Plan Problems 1. Monochorionic diamniotic twin gestation in second trimester O30.032 comanagement with MFM 2. 20 weeks gestation of Z3A.20 NIPT normal. needs AFP screening at 16-18. Anatomy us showed pyelectasis baby A, re-evaluate anatomy baby B Plan Discussed weight gain 2nd trimester may be normal. No edema noted. Babies very active on US and able to confirm FHT visually, hear it but not able to record. Both sounded in 160s. Reassured. Sees MFM in 2 days for growth US. RTO next week routine OB Coding Level of Care Code OB Routine Diagnoses Monochorionic diamniotic twin gestation in second trimester O30.032 Trimester: second trimester 20 weeks gestation of Z3A.20 Weeks of gestation: 20 weeks 10/07/18 1427 <Electronically signed by Courtney [place] SPEAKER MOUNTER-C> Date Courtney Vuong SPEAKER MOUNTER-C Cosigner Signature: Date (if applicable) CC: INVASIVE PHYSICIAN OFFICE VISIT Observed: 09/17/2018 Status: F Source: JOSEE REPORT 8:42 AM [facility] [address] [place] [address] OFFICE VISIT Date of Service: 09/17/18 MR#: [id number] Acct: [id number] Name: SHWETA WYATT Rep #: [id number] : 1985 Provider: Salena Rodriguez MD Age/Sex: 32/F Location: [facility] Status: Signed Intake Vital Signs09/17/18 Height 5 ft 7 in 09/17/18 Weight: 182 lb 4 oz 09/17/18 Body Mass Index (BMI) 28.5 09/17/18 Blood Pressure 104/58 L Intake Visit Reasons: 19 weeks Chief Complaint: est ob Map Colorer Required: No Is patient in pain?: No Allergies No Known Allergies Allergy (Verified 09/17/18 08:21) Medications docosahexanoic acid 200 mg capsule mg PO 05/10/18 [History Confirmed 09/17/18] Last Menstral Period: 03/30/18 Zika: Zika virus screening: Negative : No PFSH PFSH Medical History Abnormal Pap smear of cervix (Acute) Surgical History History of colposcopy (Resolved) S/P dilation and curettage (Resolved) Family History Grandfather Lymphoma Mother Hypertension Social History Smoking Status: Never smoker alcohol intake: current details: occasionally substance use type: does not use caffeine: No what type of physical activity do you participate in: other details: crossfit frequency: 5-6 times per week seatbelt use: always do you feel safe at home: Yes additional social history: Cwuhxfk-Qalbll-Filckdltwyqxyn of [employer] 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 OB Visit EDMUNDO Calculator Estimated Delivery Date 01/31/19 Based on LMP (certain) 04/26/18 Current WG 20w 4d Number 2 Expected Delivery Route/Plan Initial Weight: 163 lb Date Weight BP Urine PrFHR FuHt Pres MoCTX DilationFetal StVisit NoProviderComments E ot v te GA G Effac lucose ed Visit Notes Visit Date: 09/17/18 no vb cramping- reviewed us. discussed if mono di versus di di. reviewed pyelectasis. Salena Rodriguez MD on 09/17/18 Visit Date: 08/20/18 no vb lof doing wel normal nipt Salena Rodriguez MD on 08/20/18 doing well n ocomplaints Salena Rodriguez MD on 08/20/18 Visit Date: 07/22/18 No visit notes to display Visit Date: 07/08/18 no vb crmaping, desires NIPT screening Salena Rodriguez MD on 07/11/18 Visit Date: 06/20/18 No visit notes to display ACOG First Trimester First Trimester: Desire for , Alcohol, Tobacco Cessation, Illicit/Recreational Drug/Substance Use, Intimate Partner Violence, Barriers to care, Unstable Housing, Communication Barriers, Environmental/Work Hazards, Anticipated Course of Care, Toxoplasmosis Precations, Use of Any medications, Sexual activity, Exercise, Dental Care, Sauna/Hot tub use, Seat Belt use, Childbirth classes/Hospital facilities, , Travel, Indications for US and Screening for Aneuploidy Diagnostics Diagnostics Labs Blood Type O POSITIVE 06/20/18 Antibody Screen NEGATIVE 06/20/18 Hct 40.6 % (37-47) 06/20/18 Hgb 13.6 g/dl (12.0-15.0) 06/20/18 Pap Smear Positive A 06/26/13 Rubella IgG Antibody 15.8 IU/mL 06/20/18 RPR NONREACTIVE (NONREACTIVE) 06/20/18 Hep Bs Antigen Negative (Negative) 06/20/18 Chlam trachomat DNA PCR Negative (Negative) 06/20/18 N.gonorrhoeae DNA (PCR) Negative (Negative) 06/20/18 Miscellaneous Test 07/08/18 Details: HIV: Urine Culture: Sequential Screen: NIPT Screen: Assessment AND Plan Problems 1. screening encounter Z36.9 Low risk- monozygotic identical twins- Males. fraction 12.4% Patient and her to look up the sex on the website. 2. Monochorionic diamniotic twin gestation in second trimester O30.032 comanagement with MFM 3. 20 weeks gestation of Z3A.20 NIPT normal. needs AFP screening at 16-18. anatomy us ordered. 4. Encounter for supervision of normal first in second trimester Z34.02 PRR EDMUNDO 01/31/19 Norm Plan ACOG trimester education reviewed and updated. see problem list details for updated plan management information and see below for orders placed at this visit. [place] appropriate handout given. Orders Orders: Coding Level of Care Code OB Routine Diagnoses screening encounter Z36.9 Monochorionic diamniotic twin gestation in second trimester O30.032 Trimester: second trimester 20 weeks gestation of Z3A.20 Weeks of gestation: 20 weeks Encounter for supervision of normal first in second trimester Z34.02 Normal : normal first Trimester: second trimester 09/17/18 0842 <Electronically signed by Salena Rodriguez MD> Date Salena Rodriguez MD Cosigner Signature: Date (if applicable) CC: PROGRESS NOTE Observed: 09/11/2018 Status: COMPLETED Source: [place] 10:00 AM [facility] REPOSITORY Maternal Medicine Consult Date of Service: 09/11/2018 Referring Provider: Salena Rodriguez Primary Care Provider: Kim [facility], MD Tj Reason for Consult: Dr. Salena Rodriguez requests that Shweta be evaluated due to twin gestation. She is accompanied by her . Shweta is a 32 y.o. at 19w5d gestation who presents for evaluation of twin gestation. This was a spontaneous gestation. Initial evaluation showed possible monochorionic/diamniotic gestation. However, ultrasound today showed two separate placentas and confirmed that this is likely a dichorionic/diamniotic gestation. Review of initial ultrasound showed that there may have been possible triplet gestation but the sac was empty for third fetus. Patient had cell free DNA, which confirmed monozygosity. This is likely truly monozygote with early embryonic splitting (3 days). Due to separate placentation, risk for twin-twin transfusion is not likely. Therefore, close evaluation for twin-twin transfusion is not warranted. Obstetric History T0 L0 SAB1 TAB0 Ectopic0 Multiple0 Live Births0 # Outcome Date GA Lbr Gilberto/2nd Weight Sex Delivery Anes PTL Lv 2 Current 1 SAB SAB PMedHx: denies PSurgHx: [place] teeth extraction, D&C for prior miscarriage FMHx: HTN (mother), Borderline DM (Mother). Denies defects, genetic disorders and clotting disorders. Meds: PNV All: NKDA Social: Denies alcohol, drug and tobacco use Review of Systems All other systems reviewed and are negative. Physical Exam Vitals: 09/11/18 1652 BP: 118/64 Weight: 80.7 kg (178 lb) FHT: Positive X2 Presentation: Breech/Breech Ultrasound Results: 1. Dichorionic/Diamniotic Twin Gestation at 19w5d by clinical EDMUNDO. Twin A: biometry is consistent with 19 5/7 wks with estimated weight of 298 gm. Twin B: biometry is consistent with 19 4/7 wks with estimated weight of 295 gm. 2. Anatomy was limited due to position. Mild unilateral pyelectasis is noted on Twin A. 3VT view was suboptimal for Twin B. 3. Amniotic fluid appeared normal for both twins. 4. Two distinct placentas are noted without evidence of previa. 5. Transvaginal ultrasound to screen for asymptomatic cervical shortening and risk of premature delivery was performed. The maternal cervix measured 4.1 cm which suggests lower risk for premature . Impression: Shweta is a 32 y.o. female who is at 19w5d gestation. 1. Dichorionic/Diamniotic Twin Gestation. Multifetal gestations are associated with an increased risk of maternal, and infant morbidity and mortality compared to العلي gestations. Maternal risks include: hyperemesis, gestational diabetes, hypertension, anemia, hemorrhage, delivery and depression. risks include: congenital anomalies, , growth restriction and stillbirth. Infant risks are largely related to prematurity and include: intraventricular hemorrhage, periventricular leukomalacia, cerebral palsy and . Due to these increased risk, women with a twin should be followed closely for complications. screening options include serum screening (although this is not as sensitive compared to screening a العلي ), nuchal translucency with serum screening and diagnostic testing (CVS or amniocentesis). Patient underwent cell free DNA, which was low risk. Women carrying multiple gestations should increase their daily dietary intake by about 300 kcal above that for a العلي , or 600 kcal over that of a non woman. BMI <18.5 kg/m2 (underweight) no recommendation due to insufficient data BMI 18.5 to 24.9 kg/m2 (normal weight) weight gain 37 to 54 lbs (16.8 to 24.5 kg) BMI 25.0 to 29.9 kg/m2 (overweight) weight gain 31 to 50 lbs (14.1 to 22.7 kg) BMI ?30.0 kg/m2 (obese) weight gain 25 to 42 lbs (11.4 to 19.1 kg) Nutritional supplement should include: vitamin with iron (30 mg) one daily in the first trimester, then 2 daily until delivery (total iron 30 mg in the first trimester, then 60 mg until delivery) Folic acid 1 mg throughout Calcium 1000 mg daily Vitamin D supplementation if deficient Low dose aspirin for prevention of preeclampsia 2. Mild, unilateral pyelectasis on Fetus A (UTD A1), measuring 4.6 mm. This is seen in 1% to 2% of all fetuses. In those fetuses with this finding there is a 1% risk or less of chromosomal abnormality. If there were other structural abnormalities the risk of chromosomal abnormality would be increased. I did not see any other structural abnormalities however, ultrasound cannot exclude all subtle defects nor can ultrasound exclude chromosomal abnormalities. We will re-evaluate this kidney at next ultrasound. If remains dilated at 28 weeks, referral to Treatment Center will be done. Recommendations: 1. Growth ultrasound every 4 weeks. 2. Start low dose aspirin, folic acid and calcium. 3. Consider nutrition consultation and vitamin D evaluation. 4. Consider consultation in 3rd trimester. 5. Antepartum testing if growth discordance occurs. 6. Delivery at 38 weeks (or sooner if indicated), mode of delivery depends on presentation and size. The total patient time of the visit was 15 minutes, of which greater than 50% of the time was spent counseling and coordinating care. 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 Consent to share information with FTC team, OB and laborer shaft sinking signed. Pt plans to deliver at [place] with Dr. Rodriguez. Patients Transporter is not yet decided. male fetuses Method of feeding: breast Ultrasound findings today: See report in procedures for details. Confirmed Di/Di Growth in 4 weeks. No FTC indicated. Reinforced continued OB care with Hyun- has appointment 09/19 The total patient time of the visit was 10 minutes, of which greater than 50% of the time was spent counseling and coordinating care. INVASIVE PHYSICIAN OFFICE VISIT Observed: 08/20/2018 Status: F Source: JOSEE REPORT 8:32 AM [facility] [address] [place] [address] OFFICE VISIT Date of Service: 08/20/18 MR#: [id number] Acct: [id number] Name: SHWETA WYATT Rep #: [id number] : 1985 Provider: Salena Rodriguez MD Age/Sex: 32/F [place] [facility] [place]: Signed Intake Vital Signs08/20/18 Height 5 ft 7 in 08/20/18 Weight: 170 lb 8 oz 08/20/18 Body Mass Index (BMI) 26.6 08/20/18 Blood Pressure 120/68 Intake Visit Reasons: 15 weeks twins Chief Complaint: est ob Map Colorer Required: No Is patient in pain?: No Allergies No Known Allergies Allergy (Verified 08/20/18 07:59) Medications docosahexanoic acid 200 mg capsule mg PO 05/10/18 [History Confirmed 08/20/18] Last Menstral Period: 03/30/18 Zika: Zika virus screening: Negative : No PFSH PFSH Medical History Abnormal Pap smear of cervix (Acute) Surgical History History of colposcopy (Resolved) S/P dilation and curettage (Resolved) Family History Grandfather Lymphoma Mother Hypertension Social History Smoking Status: Never smoker alcohol intake: current details: occasionally substance use type: does not use caffeine: No what type of physical activity do you participate in: other details: crossfit frequency: 5-6 times per week seatbelt use: always do you feel safe at home: Yes additional social history: [employer] of [employer] 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 OB Visit EDMUNDO Calculator Estimated Delivery Date 01/31/19 Based on LMP (certain) 04/26/18 Current WG 16w 4d Number 2 Expected Delivery Route/Plan Initial Weight: 163 lb Date Weight BP Urine PrFHR FuHt Pres MoCTX DilationFetal StVisit NoProviderComments E ot v te GA G Effac lucose ed Visit Notes Visit Date: 08/20/18 no vb lof doing wel normal nipt Salena Rodriguez MD on 08/20/18 doing well n ocomplaints Salena Rodriguez MD on 08/20/18 Visit Date: 07/22/18 No visit notes to display Visit Date: 07/08/18 no vb crmaping, desires NIPT screening Salena Rodriguez MD on 07/11/18 Visit Date: 06/20/18 No visit notes to display Diagnostics Diagnostics Labs Blood Type O POSITIVE 06/20/18 Antibody Screen NEGATIVE 06/20/18 Hct 40.6 % (37-47) 06/20/18 Hgb 13.6 g/dl (12.0-15.0) 06/20/18 Pap Smear Positive A 06/26/13 Rubella IgG Antibody 15.8 IU/mL 06/20/18 RPR NONREACTIVE (NONREACTIVE) 06/20/18 Hep Bs Antigen Negative (Negative) 06/20/18 Chlam trachomat DNA PCR Negative (Negative) 06/20/18 N.gonorrhoeae DNA (PCR) Negative (Negative) 06/20/18 Miscellaneous Test 07/08/18 Details: HIV: Urine Culture: Sequential Screen: NIPT Screen: Results [id number] Office Urine Glucose Negative Last Edit by Dalia Glynn on 08/20/18 08:05 Office Urine Protein Negative Last Edit by Dalia Glynn on 08/20/18 08:05 Assessment AND Plan Problems 1. Monochorionic diamniotic twin gestation in second trimester O30.032 comanagement with MFM 2. 16 weeks gestation of Z3A.16 NIPT normal. needs AFP screening at 16-18. anatomy us ordered. 3. screening encounter Z36.9 Low risk- monozygotic identical twins- Males. fraction 12.4% Patient and her to look up the sex on the website. 4. Encounter for supervision of normal first in second trimester Z34.02 PRR EDMUNDO 01/31/19 Norm Plan ACOG trimester education reviewed and updated. see problem list details for updated plan management information and see below for orders placed at this visit. GA appropriate handout given. considering AFP declines at this time Orders Orders: Coding Level of Care Code OB Routine Diagnoses Monochorionic diamniotic twin gestation in second trimester O30.032 Trimester: second trimester 16 weeks gestation of Z3A.16 Weeks of gestation: 16 weeks screening encounter Z36.9 Encounter for supervision of normal first in second trimester Z34.02 Normal : normal first Trimester: second trimester 08/20/18 0832 <Electronically signed by Salena Rodriguez MD> Date Salena Rodriguez MD Cosigner Signature: Date (if applicable) CC: INVASIVE PHYSICIAN OFFICE VISIT Observed: 07/22/2018 Status: F Source: JOSEE REPORT 5:17 PM [facility] [address] [place] [address]. [address] [place] [address] OFFICE VISIT Date of Service: 07/22/18 MR#: [id number] Acct: [id number] Name: SHWETA WYATT Rep #: [id number] : 1985 Provider: Salena Rodriguez MD Age/Sex: 32/F Location: [facility] Status: Signed Intake Vital Signs07/22/18 Height 5 ft 7 in 07/22/18 Weight: 166 lb 07/22/18 Body Mass Index (BMI) 25.9 07/22/18 Blood Pressure 119/71 Intake Visit Reasons: 11 weeks twins Map Colorer Required: No Is patient in pain?: No Allergies No Known Allergies Allergy (Verified 07/22/18 16:48) Medications docosahexanoic acid 200 mg capsule mg PO 05/10/18 [History Confirmed 07/22/18] Last Menstral Period: 04/26/18 Zika: Zika virus screening: Negative : No PFSH PFSH Medical History Abnormal Pap smear of cervix (Acute) Surgical History History of colposcopy (Resolved) S/P dilation and curettage (Resolved) Family History Grandfather Lymphoma Mother Hypertension Social History Smoking Status: Never smoker alcohol intake: current details: occasionally substance use type: does not use caffeine: No what type of physical activity do you participate in: other details: crossfit frequency: 5-6 times per week seatbelt use: always do you feel safe at home: Yes additional social history: Lrqezko[employer]Umtbwi[employer]Yzqlugkeqommmg of [employer] 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 OB Visit EDMUNDO Calculator Estimated Delivery Date 01/31/19 Based on LMP (certain) 04/26/18 Current WG 12w 3d Number 2 Expected Delivery Route/Plan Initial Weight: 163 lb Date Weight BP Urine PFHR FuHt Pres MCTX DilatioFetal SVisit NProvideComment rot ov n t ote r s EGA Ef Gluco faced se 06/20/1163 lb A A A A A 8 6 oz (+ 7w6 oz) B B B B B 6d Visit Notes Visit Date: 07/22/18 No visit notes to display Visit Date: 07/08/18 no vb crmaping, desires NIPT screening Salena Rodriguez MD on 07/11/18 Visit Date: 06/20/18 No visit notes to display ACOG First Trimester First Trimester: Desire for , Alcohol, Tobacco Cessation, Illicit/Recreational Drug/Substance Use, Intimate Partner Violence, Barriers to care, Unstable Housing, Communication Barriers, Environmental/Work Hazards, Anticipated Course of Care, Toxoplasmosis Precations, Use of Any medications, Sexual activity, Exercise, Dental Care, Sauna/Hot tub use, Seat Belt use, Childbirth classes/Hospital facilities, , Travel, Indications for US and Screening for Aneuploidy Diagnostics Diagnostics Labs Blood Type O POSITIVE 06/20/18 Antibody Screen NEGATIVE 06/20/18 Hct 40.6 % (37-47) 06/20/18 Hgb 13.6 g/dl (12.0-15.0) 06/20/18 Pap Smear Positive A 06/26/13 Rubella IgG Antibody 15.8 IU/mL 06/20/18 RPR NONREACTIVE (NONREACTIVE) 06/20/18 Hep Bs Antigen Negative (Negative) 06/20/18 Chlam trachomat DNA PCR Negative (Negative) 06/20/18 N.gonorrhoeae DNA (PCR) Negative (Negative) 06/20/18 Miscellaneous Test 07/08/18 Details: HIV: Urine Culture: Sequential Screen: NIPT Screen: Results [id number] Office Urine Glucose Negative Last Edit by Mague Webb on 07/22/18 16:53 Office Urine Protein Negative Last Edit by Mague Webb on 07/22/18 16:53 Assessment AND Plan Problems 1. screening encounter Z36.9 Low risk- monozygotic identical twins- Males. fraction 12.4% Patient and her to look up the sex on the website. 2. Monochorionic diamniotic twin gestation in first trimester O30.031 comanagement with MFM 3. 12 weeks gestation of Z3A.12 NIPT normal. needs AFP screening at 16-18. anatomy us ordered. 4. Encounter for supervision of normal first in first trimester Z34.01 PRR EDMUNDO 01/31/19 Norm Plan movement and labor precautions reviewed. ACOG trimester education reviewed and updated. see problem list details for updated plan management information and see below for orders placed at this visit. GA appropriate handout given. Orders Orders: Coding Level of Care Code OB Routine Diagnoses screening encounter Z36.9 Monochorionic diamniotic twin gestation in first trimester O30.031 Trimester: first trimester 12 weeks gestation of Z3A.12 Weeks of gestation: 12 weeks Encounter for supervision of normal first in first trimester Z34.01 Normal : normal first Trimester: first trimester 07/22/18 1937 <Electronically signed by Salena Rodriguez MD> Date Salena Rodriguez MD Cosigner Signature: Date (if applicable) CC: INVASIVE PHYSICIAN OFFICE VISIT Observed: 07/11/2018 Status: F Source: JOSEE REPORT 1:47 AM [facility] [address] [place] [address] OFFICE VISIT Date of Service: 07/08/18 MR#: [id number] Acct: [id number] Name: SHWETA WYATT Rep #: [id number] : 1985 Provider: Salena Rodriguez MD Age/Sex: 32/F Location[place] [facility] Status: Signed Intake Vital Signs07/08/18 Height 5 ft 7 in 07/08/18 Weight: 159 lb 8 oz 07/08/18 Body Mass Index (BMI) 25.0 07/08/18 Blood Pressure 121/71 Intake Visit Reasons: 9 weeks twins Chief Complaint: est ob Map Colorer Required: No Is patient in pain?: No Allergies No Known Allergies Allergy (Verified 07/08/18 13:33) Medications docosahexanoic acid 200 mg capsule mg PO 05/10/18 [History Confirmed 07/08/18] Last Menstral Period: 04/26/18 Zika: Zika virus screening: Negative : No PFSH PFSH Medical History Abnormal Pap smear of cervix (Acute) Surgical History History of colposcopy (Resolved) S/P dilation and curettage (Resolved) Family History Grandfather Lymphoma Mother Hypertension Social History Smoking Status: Never smoker alcohol intake: current details: occasionally substance use type: does not use caffeine: No what type of physical activity do you participate in: other details: crossfit frequency: 5-6 times per week seatbelt use: always do you feel safe at home: Yes additional social history: Hbenqlr[employer]Llipwd[employer]Xffky[employer]hladbpn of [employer] 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 OB Visit EDMUNDO Calculator Estimated Delivery Date 01/31/19 Based on LMP (certain) 04/26/18 Current WG 10w 6d Number 2 Expected Delivery Route/Plan Initial Weight: 163 lb Date Weight BP Urine PFHR FuHt Pres MCTX DilatioFetal SVisit NProvideComment rot ov n t ote r s EGA Ef Gluco faced se 06/20/1163 lb A A A A A 8 6 oz (+ 7w6 oz) B B B B B 6d Visit Notes Visit Date: 07/08/18 no vb crmaping, desires NIPT screening Salena Rodriguez MD on 07/11/18 Visit Date: 06/20/18 No visit notes to display ACOG First Trimester First Trimester: Desire for , Alcohol, Tobacco Cessation, Illicit/Recreational Drug/Substance Use, Intimate Partner Violence, Barriers to care, Unstable Housing, Communication Barriers, Environmental/Work Hazards, Anticipated Course of Care, Toxoplasmosis Precations, Use of Any medications, Sexual activity, Exercise, Dental Care, Sauna/Hot tub use, Seat Belt use, Childbirth classes/Hospital facilities, , Travel, Indications for US and Screening for Aneuploidy Diagnostics Diagnostics Labs Blood Type O POSITIVE 06/20/18 Antibody Screen NEGATIVE 06/20/18 Hct 40.6 % (37-47) 06/20/18 Hgb 13.6 g/dl (12.0-15.0) 06/20/18 Pap Smear Positive A 06/26/13 Rubella IgG Antibody 15.8 IU/mL 06/20/18 RPR NONREACTIVE (NONREACTIVE) 06/20/18 Hep Bs Antigen Negative (Negative) 06/20/18 Chlam trachomat DNA PCR Negative (Negative) 06/20/18 N.gonorrhoeae DNA (PCR) Negative (Negative) 06/20/18 Miscellaneous Test 07/08/18 Details: HIV: Urine Culture: Sequential Screen: NIPT Screen: Results [id number] Office Urine Glucose Negative Last Edit by Dalia Glynn on 07/08/18 13:35 Office Urine Protein Negative Last Edit by Dalia Glynn on 07/08/18 13:35 Assessment AND Plan Problems 1. Monochorionic diamniotic twin gestation in first trimester O30.031 comanagement with MFM 2. Less than 8 weeks gestation of Z3A.01 3. Encounter for supervision of normal first in first trimester Z34.01 PRR EDMUNDO 01/31/19 Norm Plan ACOG trimester education reviewed and updated. see problem list details for updated plan management information and see below for orders placed at this visit. GA appropriate handout given. Orders Orders: Coding Level of Care Code OB Routine Diagnoses Monochorionic diamniotic twin gestation in first trimester O30.031 Trimester: first trimester Less than 8 weeks gestation of Z3A.01 Weeks of gestation: less than 8 weeks Encounter for supervision of normal first in first trimester Z34.01 Normal : normal first Trimester: first trimester 07/11/18 0147 <Electronically signed by Salena Rodriguez MD> Date Salena Rodriguez MD Cosigner Signature: Date (if applicable) CC: MISCELLANEOUS LAB Collected: 07/08/2018 Status: F Source: JOSEE PROCEDURE 2:22 PM [facility] REPOSITORY Order Comment: Test(s) Ordered: [place] TYPE CODE TESTS RESULT OUT OF RANGE REFERENCE UNITS LAB L801.1541 Normal [facility] LAB TEST Result Comment: Sent directly to testing facility per ordering physician. @ 07/09/18 0859 MYOUNG Performed By: #### L801.1541 #### [facility] [address] [place], [address] CT/NG [facility] BY PCR Collected: 06/20/2018 Status: F Source: JOSEE 6:18 PM [facility] REPOSITORY TYPE CODE TESTS RESULT OUT OF RANGE REFERENCE UNITS LAB L8200.2100 Negative Normal Chlam Negative Trac PCR LAB L8200.2200 Negative Normal NG by Negative PCR Performed By: #### L8200.2000, M100.0650 #### [facility] [address] [place], [address] Observed: 06/20/2018 Status: F Source: JOSEE CULTURE, URINE 6:18 PM [facility] REPOSITORY Urine Culture ORGANISM 1: Mixed Gram Pos AND Gram Neg Org [place] Count <1000 MIX CULTURE Mixed contaminants. Submit a new specimen if indicated. Performed By: #### L8200.2000, M100.0650 #### [facility] [address] [place], [address] INVASIVE PHYSICIAN OFFICE VISIT Observed: 06/20/2018 Status: F Source: JOSEE REPORT 9:17 AM [facility] REPOSITORY [facility] [address] [place] [address] OFFICE VISIT Date of Service: 06/20/18 MR#: [id number] Acct: [id number] Name: SHWETA WYATT Rep #: [id number] : 1985 Provider: Salena Rodriguez MD Age/Sex: 32/F Location[place] [facility] Status: Signed Intake Vital Signs06/20/18 Height 5 ft 7 in 06/20/18 Weight: 163 lb 6 oz 06/20/18 Body Mass Index (BMI) 25.5 Intake Visit Reasons: NOB - LMP 04/26 Map Colorer Required: No Is patient in pain?: No Allergies No Known Allergies Allergy (Verified 06/20/18 08:07) Medications docosahexanoic acid 200 mg capsule mg PO 05/10/18 [History Confirmed 06/20/18] Last Menstral Period: 04/26/18 Zika: Zika virus screening: Negative : No PFSH PFSH Medical History Abnormal Pap smear of cervix (Acute) Surgical History History of colposcopy (Resolved) S/P dilation and curettage (Resolved) Family History Grandfather Lymphoma Mother Hypertension Social History Smoking Status: Never smoker alcohol intake: current details: occasionally substance use type: does not use caffeine: No what type of physical activity do you participate in: other details: crossfit frequency: 5-6 times per week seatbelt use: always do you feel safe at home: Yes additional social history: Ttrjxrx-Cwzfjb-Aryxueerctuiew of [employer] 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 OB Visit EDMUNDO Calculator Estimated Delivery Date 01/31/19 Based on LMP (certain) 04/26/18 Current WG 7w 6d Number 1 Comments: two poles seen measuring 7w3d and fht 150s viable questionable chorionicity- no dividing membrane seen. Expected Delivery Route/Plan Initial Weight: 163 lb Date Weight BP Urine PrFHR FuHt Pres MoCTX DilationFetal StVisit NoProviderComments E ot v te GA G Effac lucose ed Menstrual History Last Menstral Period: 04/26/18 Reported LMP: definite Normal amount/duration: Yes On hormonal BC at conception: No Antepartum Record Genetic Screening: Congenital Heart Defect: Other, Neural Tube Defect: Other, Hemoglobinopathy Or Carrier: Other, Cystic Fibrosis: Other, Chromosome Abnormality: Other, Hayder-Sachs: Other, Hemophilia: Other, Intellectual Disability/Autism: Other, Recurrent Loss/Stillbirth: Other, Other Structural Defect: Other, Other Genetic Disease: Other, Maternal Metabolic Disorder: Other Infection History: Live with someone with TB or Exposed to TB: No, Patient or Partner has history of Genital Herpes: No, Rash or Viral illness since last mentrual period: No, Prior GBS-Infected child: No, History of STD: No, HIV Infection: No, History of Hepatitis: No, Recent travel outside of [place]: No, Concern for Hep exposure: No, Varicella immune: Yes Medical History Medical History: Positive: History of abnormal pap, Negative: Diabetes, Hypertension, Heart disease, Auto-immune disorder, Kidney disease/UTI, Neurologic/epilepsy, Psychiatric, Depression/ depression, Hepatitis/liver disease, Varicosities/phlebitis, Thyroid dysfunction, Trauma/domestic violence, History of blood transfusions, D (Rh) Sensitized, Pulmonary (e.g.,TB,Asthma), Seasonal allergies, Drug/latex allergies/reactions, Breast, Process Control Tech surgery, Operations/hospitalizations, Anesthetic complications, Uterine anomaly/roya, Infertility, Anti-retroviral treatment, Relevant family history, Other ACOG First Trimester First Trimester: , Desire for , Alcohol, Tobacco Cessation, Illicit/Recreational Drug/Substance Use, Intimate Partner Violence, Barriers to care, Unstable Housing, Communication Barriers, Environmental/Work Hazards, Anticipated Course of Care, Nurtrition and weight gain, Toxoplasmosis Precations, Use of Any medications, Sexual activity, Exercise, Dental Care, Sauna/Hot tub use, Seat Belt use, Childbirth classes/Hospital facilities, Travel, Indications for US and Screening for Aneuploidy ROS Const Denies fever(s), Reports system reviewed and no additional complaints, except as docu, Reports fatigue Eyes Reports system reviewed and no additional complaints, except as docu ENT Reports system reviewed and no additional complaints, except as docu Card Denies chest pain, Denies shortness of breath Resp Reports system reviewed and no additional complaints, except as docu, Denies shortness of breath, Denies cough GI Reports nausea, Denies abdominal pain Reports system reviewed and no additional complaints, except as docu Musc Reports system reviewed and no additional complaints, except as docu Skin/Breast Reports system reviewed and no additional complaints, except as docu Neuro Yes system reviewed and no additional complaints, except as docu Psych Reports system reviewed and no additional complaints, except as docu Endo Reports fatigue, Reports system reviewed and no additional complaints, except as docu Exam Const General: healthy appearing, comfortable, no acute distress Orientation: alert [facility] Head: normal to inspection, atraumatic, normocephalic Ears: external ears normal, hearing grossly normal bilaterally Nose: nares normal, external nose normal Mouth: oral mucosae normal Teeth and gingiva: dentition normal Eyes General: appearance normal, both eyes and all related structures Neck Neck: no lymphadenopathy, supple, normal visual inspection Thyroid: thyroid normal Resp Effort AND Inspection: normal respiratory effort GI Inspection: normal to inspection Palpation: soft, no hepatosplenomegaly General: bladder normal to palpation External Female Exam: normal external appearance, normal appearance of the urethra Urethra: normal appearance of the urethra Speculum Exam - Vagina: normal appearance of the vagina, normal vaginal discharge Speculum Exam - Cervix: normal appearance of the cervix Bimanual Exam- Vagina AND Uterus: bladder normal to palpation, normal bimanual exam, uterus non-tender, other Bimanual Exam- Adnexa, other: adnexae non-tender Skin General: no rashes or lesions noted Neuro Motor: muscle tone normal throughout, no movement abnormalities noted Extrem General: normal to inspection, full ROM Assessment AND Plan Problems 1. Twin gestation, unable to determine number of placenta and number of amniotic sacs in first trimester O30.091 possible mono/mono- recommend MFM consult 2. Less than 8 weeks gestation of Z3A.01 3. Encounter for supervision of normal first in first trimester Z34.01 EDMUNDO 01/31/19 Norm Plan Patient oriented to practice and discussed care expectations and screenings. ACOG book offered to patient. Discussed routine and specially indicated labs if needed- patient consents to testing. see problem list details for plan information. Genetic screening including carrier screenings, sequential screening, and NIPT screening offered to patient and patient chose: considering Orders Orders: Supplemental Info ACOG book given and patient encouraged to read about nutrition, exercise, weight gain, and food avoidance in . Coding Level of Care Code OB Routine Diagnoses Twin gestation, unable to determine number of placenta and number of amniotic sacs in first trimester O30.091 Multiple gestation type: unable to determine placenta and amniotic sac number Trimester: first trimester Less than 8 weeks gestation of Z3A.01 Weeks of gestation: less than 8 weeks Encounter for supervision of normal first in first trimester Z34.01 Normal : normal first Trimester: first trimester 06/20/18 0917 <Electronically signed by Salena Rodriguez MD> Date Salena Rodriguez MD Cosigner Signature: Date (if applicable) CC: CBC W/DIFF, AUTOMATED Collected: 06/20/2018 Status: F Source: JOSEE 9:16 AM [facility] REPOSITORY TYPE CODE TESTS RESULT OUT OF RANGE REFERENCE UNITS LAB L100.1000 4.4-11.0 K/mm3 Normal WBC 5.9 LAB L100.1200 4.2-5.4 M/mm3 Normal RBC 4.56 LAB L100.1300 12.0-15.0 g/dl Normal HGB 13.6 LAB L100.1400 37-47 % Normal HCT 40.6 LAB L100.1500 81-99 fL Normal MCV 89.0 LAB L100.1600 27.0-32.0 pg Normal MCH 29.8 LAB L100.1700 32-36 g/gl Normal MCHC 33.5 LAB L100.1810 11.6-14.6 % Normal RDW CV 12.0 LAB L100.1820 35.1-43.9 fl Normal RDW SD 38.9 LAB L100.1900 150-450 K/mm3 Normal PLT 254 LAB L100.2000 6.2-12.0 fl Normal MPV 10.2 LAB L100.2100 47-70 % Normal NEUT% 64.2 LAB L100.2200 19-41 % Normal LY% 28.2 LAB L100.2300 0-10 % Normal MONO% 6.2 LAB L100.2400 0-5 % Normal EO% 1.0 LAB L100.2500 0-1 % Normal BASO% 0.2 LAB L100.2550 0.0-0.9 % Normal IM GRAN % 0.200 Result Comment: IG% - Immature Granulocytes (promyelocytes, myelocytes and metamyelocytes) > 1% indicates that a LEFT SHIFT is Present. LAB L100.2620 2.0-7.7 X10 3/uL Normal Absolute Neut 3.8 LAB L100.2720 0.83-4.51 X10 3/ul Normal Absolute Lymph 1.65 Performed By: #### L100.0100, B101.7450 #### [facility] [address] [place], [place], [id number] TYPE AND SCREEN Collected: 06/20/2018 Status: F Source: JOSEE 9:16 AM [facility] REPOSITORY Order Comment: Reason for Type AND Screen/Red Cells: TYPE CODE TESTS RESULT OUT OF RANGE REFERENCE UNITS LAB B10.0800 O Normal BLOOD TYPE GEL POSITIVE LAB B100.4000 Normal Antibody NEGATIVE Screen Performed By: #### L100.0100, B101.7450 #### [facility] [address] [facility]. [place], [place], [id number] RAPID PLASMIN REAGIN Collected: 06/20/2018 Status: F Source: JOSEE (RPR) 9:16 AM [facility] REPOSITORY TYPE CODE TESTS RESULT OUT OF REFERENCE UNITS RANGE LAB L700.5000 NONREACTIVE NONREACTIVE Normal RPR Performed By: #### L700.5000 #### [facility] [facility] [address] HEPATITIS B SURFACE Collected: 06/20/2018 Status: F Source: JOSEE AG 9:16 AM [facility] REPOSITORY TYPE CODE TESTS RESULT OUT OF RANGE REFERENCE UNITS LAB L3100.0400 Negative Normal HB Negative SURF AG Result Comment: Performed at: [facility] Lab[address] [id number] Filter Assembler: Doug Owen PhD, Phone: [phone] Performed By: #### L3100.0390 #### [facility] (refer to report for specific site) refer to report for address and phone number #### L509.4000, L3890.6005 #### [facility] [address] [place], [place] [address]e. [facility] [address] RUBELLA IGG Collected: 06/20/2018 Status: F Source: JOESE 9:16 AM [facility] REPOSITORY TYPE CODE TESTS RESULT OUT OF RANGE REFERENCE UNITS LAB L509.4000 IU/mL Normal Rubella IgG 15.8 Result Comment: Antibody results Interpretation of Immune Status < 5 IU/ml Presumed Non-immune 5 - < 10 IU/ml Equivocal > or = 10 IU/ml Presumed Immune Performed By: #### L3100.0390 #### [facility] (refer to report for specific site) refer to report for address and phone number #### L509.4000, L3890.6005 #### [facility] [facility] [id number] HIV - [facility] Collected: 06/20/2018 Status: F Source: JOSEE 9:16 AM [facility] REPOSITORY TYPE CODE TESTS RESULT OUT OF RANGE REFERENCE UNITS LAB L3890.6005 Nonreactive Normal HIV - [facility] Non-Reactive Performed By: #### L3100.0390 #### [facility] (refer to report for specific site) refer to report for address and phone number #### L509.4000, L3890.6005 #### [facility] [address] [place], [address] INVASIVE PHYSICIAN OFFICE VISIT Observed: 05/12/2018 Status: F Source: JOSEE REPORT 4:21 PM [facility] REPOSITORY [facility] [address] [place] [address] OFFICE VISIT Date of Service: 05/10/18 MR#: [id number] Acct: [id number] Name: SHWETA PACKER Rep #: [id number] : 1985 Provider: Salena Rodriguez MD Age/Sex: 32/F Location[facility] Status: Signed Intake Vital Signs05/10/18 Height 5 ft 7 in 05/10/18 Weight: 163 lb 4 oz 05/10/18 Body Mass Index (BMI) 25.5 05/10/18 Blood Pressure 117/74 Intake Visit Reasons: ANNUAL Map Colorer Required: No Is patient in pain?: No Allergies No Known Allergies Allergy (Verified 05/10/18 11:23) Medications docosahexanoic acid 200 mg capsule mg PO 05/10/18 [History Confirmed 05/10/18] Is last menstrual period known: Yes Last Menstral Period: 04/26/18 Post menopausal: No Patient : No : No PFSH Medical History Abnormal Pap smear of cervix (Acute) Surgical History History of colposcopy (Resolved) S/P dilation and curettage (Resolved) Family History Grandfather Lymphoma Mother Hypertension Social History alcohol intake: current details: occasionally substance use type: does not use caffeine: Yes what type of physical activity do you participate in: other details: crossfit frequency: 5-6 times per week seatbelt use: always do you feel safe at home: Yes additional social history: Rlndotz-Errghk-Pvqpjhanyfnglm of [employer] 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 she is trying to conceive since november, some strange cycles. some hair loss. Last PAP: 2016 History of abnormal PAP: no Female Reproductive History Last Menstral Period: 04/26/18 Cycle Length: 21-35 Bleeding Duration: 3 Questions: Metorrhagia: No, Sexually active: Yes, Dyspareunia: No, PCB: No ROS Const Constitutional: Reports as per HPI; denies poor appetite, fatigue, increased appetite, weight gain or weight loss Cardio Card: Denies chest pain Resp Resp: Denies dyspnea or cough GI GI: Reports as per HPI; denies bloating, abdominal pain, constipation, vomiting or nausea : Reports as per HPI and other; denies blood in urine, vaginal odor, vaginal itching, vaginal dryness, vaginal discharge, urinary urgency, urinary incontinence, urinary frequency, pelvic pain, painful urination, difficulty urinating, prolapse symptoms or nipple discharge Skin Skin/Breast: Denies breast pain, breast skin changes, nipple discharge, breast lump or changing lesions Exam Const General: cooperative, healthy appearing, comfortable, no acute distress, well developed, well groomed HENMT Head: normal to inspection, normocephalic Ears: hearing grossly normal bilaterally, external ears normal Nose: external nose normal Face and sinus: normal facial exam Neck Neck: normal visual inspection, full ROM, no lymphadenopathy Thyroid: thyroid normal Chest Chest palpation AND inspection: normal inspection of the chest Breast inspection: normal inspection of the breasts, normal inspection of the axillae Breast palpation: normal palpation of the breasts, normal palpation of the axillae, no axillary lymphadenopathy Resp Effort AND Inspection: normal respiratory effort GI Inspection: normal to inspection, non-distended Palpation: no guarding, soft, no hepatosplenomegaly General: bladder normal to palpation External Female Exam: normal external appearance, normal appearance of the urethra, no lesions Urethra: normal appearance of the urethra, normal palpation Speculum Exam - Vagina: normal appearance of the vagina, normal vaginal discharge Speculum Exam - Cervix: normal appearance of the cervix, no cervical discharge, no lesions, nontender Bimanual Exam- Vagina AND Uterus: No cervical tenderness, normal bimanual exam, uterine size normal, bladder normal to palpation, uterine mobility normal, uterine consistency normal, uterus non-tender, no cervical motion tenderness Bimanual Exam- Adnexa, other: normal adnexae, no adnexal masses, adnexae non-tender Skin General: no rashes or lesions noted Neuro General: alert, moves all extremities, no focal motor deficits Extrem General: no pedal edema, normal to inspection Psych Appearance: grossly normal Mental Status: mental status grossly normal Affect: normal affect Speech and Movement: speech and movement normal Attitude: cooperative Assessment AND Plan Problems 1. Encounter for gynecological examination without abnormal finding Z01.419 Plan Cervical cancer screening: pap Breast cancer screening: clinical STD prevention and contraceptive options including their risks, benefits, and alternatives were reviewed with the patient and she chooses: none Encouraged maintenance of a healthy weight and active lifestyle and handout given. Calcium/vitamin D recommendations provided. Annual exam handout including recommendations for good health guidelines and basic screening information given. Problem list up to date, see problem list details for any additional plan information. follow up in one year for annual health maintenance exam or sooner if needed. Orders Orders: Coding Level of Care Code Off vis,est,prev 18-39yrs Diagnoses Encounter for gynecological examination without abnormal finding Z01.419 Gynecological examination findings: abnormal findings ABSENT 05/12/18 1621 <Electronically signed by Salena Rodriguez MD> Date Salena Rodriguez MD Cosigner Signature: Date (if applicable) CC: THYROID STIM HORMONE Collected: 05/10/2018 Status: F Source: JOSEE (TSH) 12:21 PM [facility] REPOSITORY TYPE CODE TESTS RESULT OUT OF RANGE REFERENCE UNITS LAB L501.9520 0.358-3.74 uIU/mL Normal TSH 2.09 Performed By: #### L501.9520, L506.0400 #### [facility] [address] [place], [address] T4 FREE DIRECT Collected: 05/10/2018 Status: F Source: JOSEE 12:21 PM [facility] REPOSITORY TYPE CODE TESTS RESULT OUT OF RANGE REFERENCE UNITS LAB L506.0400 0.76-1.46 ng/dL Normal T4 FREE 0.79 DIRECT Performed By: #### L501.9520, L506.0400 #### [facility] [address] [place], [address] ALLERGIES ALLERGIES DATE TYPE / CODE NAME / CODE REACTION SEVERITY SOURCE 12/13/2018 Drug No Known Unknown Josee Allergy/973843215(S Allergies/F0019 [facility] [place]) [address](RXNORM) Hospital Repository Miscellaneous NO KNOWN [place] Allergy/797346330(S ALLERGIES [facility] Hospital Repository ENCOUNTERS ENCOUNTERS ADMIT/DISCHARGE ACCOUNT ADMITTING ENCOUNTER LOCATION SOURCE NUMBER CLASS 12/19/2018 [id number] Ambulatory BMSBuilding:Heriberto Tripp MS.CF.[facility] Repository 12/19/2018/12/19/19 [id number] Ambulatory [address] ing:WPOUTRoom Repository : WP013 12/17/2018 [id number] Ambulatory BMSBuilding:Heriberto Tripp MS.CF.[facility] Repository 12/16/2018/12/16/19 [id number] Ambulatory Building:[address] Repository 12/16/2018 [id number] Ambulatory Building:[facility] Repository 12/13/2018/12/13/19 [id number] Ambulatory [address] ing:WPOUTRoom Repository : WP012 12/13/2018/12/13/19 [id number] Ambulatory BMSBuilding:Heriberto Tripp 19 MS.[facility] Repository 12/12/2018 [id number] Ambulatory Building:[facility] Repository 11/29/2018/11/29/19 [id number] Ambulatory BMSBuilding:Heriberto Tripp 19 MS.[facility] Repository 11/28/2018 [id number] Ambulatory Building:[facility] Repository 11/15/[id number] [facility] ing:PAVLAB Repository 11/15/2018/11/15/20 [id number] Ambulatory BMSBuilding:B Josee 18 MS.[facility] Repository 11/11/2018/11/11/20 [id number] Ambulatory Building:[address] Repository 10/28/2018 [id number] Ambulatory Building:[facility] Repository 10/16/2018/10/16/20 [id number] Ambulatory BMSBuilding:B Josee 18 MS.[facility] Repository 10/10/2018 [id number] Ambulatory Building:[facility] Repository 10/07/2018/10/07/20 [id number] Ambulatory BMSBuilding:B [place] 18 MS.[facility] Repository 09/25/2018/09/25/20 [id number] Ambulatory Building:[address] Repository 09/17/2018/09/17/20 [id number] Ambulatory BMSBuilding:B [place] 18 MS.[facility] Repository 09/11/2018/09/11/20 [id number] Ambulatory Building:[address] Repository 09/11/2018/09/11/20 [id number] Ambulatory Building:[address] Repository 08/20/2018/08/20/20 [id number] Ambulatory BMSBuilding:B Josee 18 MS.[facility] Repository 08/05/2018 [id number] Ambulatory BMSBuilding:B [place] MS.[facility] Repository 07/22/2018/07/22/20 [id number] Ambulatory BMSBuilding:B Josee 18 MS.[facility] Repository 07/08/2018 [id number] Ambulatory [facility] Hospital ing:LAB Repository 07/08/2018/07/08/20 [id number] Ambulatory BMSBuilding:B [place] 18 MS.[facility] Repository 06/24/2018 [id number] Ambulatory Building:[facility] Repository 06/20/2018 [id number] Ambulatory [facility] Hospital ing:LABSPEC Repository 06/20/2018 [id number] Ambulatory [facility] Hospital ing:LAB Repository 06/20/2018/06/20/20 [id number] Ambulatory BMSBuilding:B [place] 18 MS.[facility] Repository 05/10/2018 [id number] Ambulatory Josee [place] [facility] ing:LAB Repository 05/10/2018/05/10/20 [id number] Ambulatory BMSBuilding:B [place] 18 MS.[facility] Repository PAYERS PAYERS ENCOUNTER GUARANTOR PAYER SUBSCRIBER SOURCE 12/19/2018 SHWETA Louis Primary NORM Tripp [id number] TR Insurance:MEDICAL BOWLESDOB: [address]07-10[facility] [address]Zrx: Number: Repository [id number] (HP) Date:2292-40-39QZ [place] [address]WP: 12/19/2018 Secondary NOT GIVENUNK Jose[place] Insurance:SELF PAY [facility] Number: Effective Repository Date:2018-12-19 12/19/2018 SHWETA Louis Primary NORM Jose[place] [id number] TR Insurance:MEDICAL BOWLESDOB: [address] 8701-90-41ZHVMesilla Valley Hospital [address]Ywj: Number: Repository [id number] (HP) Date:0341-12-24[place] [phone]: 12/19/2018 Secondary NOT GIVENUNK [place] Insurance:SELF PAY [facility] Number: Effective Repository Date:2018-12-19 12/17/2018 SHWETA Louis Primary NORM [place] [id number] TR Insurance:MEDICAL BOWLESDOB: [address] 8882-71-59DVZM[facility]illa [facility] [address]Xtb: Number: Repository [id number] (HP) Date:3012-77-99PV[address] [address]MM: 12/17/2018 Secondary NOT GIVENUNK [place] Insurance:SELF PAY [facility] Number: Effective Repository Date:2018-12-17 12/16/2018 SHWETA Primary NORMCRISTOBAL [facility] BOWLESDOB: Insurance:MEDICAL BOWLESDOB: [facility] [id number] [facility] [address] Number: [address], [id number] [address] [place] [address]Tlt: Date: [place] [address] () 12/16/2018 [facility] NORM Jon [facility] BOWLESDOB: Insurance:MEDICAL BOWLESDOB: [facility] [id number] [address] [facility] Number: [address], [id number] [address] [place] [address]Ckj: Date: [place] [address] () 12/13/2018 [facility] Primary NORM Tri[place] [id number] TR Insurance:MEDICAL BOWLESDOB: [address] [id number] [facility] [address]Exf: Number: Repository [id number] () Date:0481-78-59DN [address] [place] [address]BP: 12/13/2018 Secondary NOT GIVENUNK [place] Insurance:SELF PAY [facility] Number: Effective Repository Date:2018-12-13 12/13/2018 [place] B Primary NORMCRISTOBAL [place] [id number] TR Insurance:MEDICAL BOWLESDOB: [address] [id number] [facility] [address]Mda: Number: Repository [id number] () Date:4962-23-01OW[address] [address]FQ: 12/13/2018 Secondary NOT GIVENUNK [place] Insurance:SELF PAY [facility] Number: Effective Repository Date:2018-11-28 12/12/2018 [facility] NORM Jon [place] [facility] BOWLESDOB: Insurance:MEDICAL BOWLESDOB: [facility] [id number] [facility] Number: [address] 405[place], [id number] [address] [place] [address]Vqn: Date: [place] [address] (HP) 11/29/2018 SHWETA B Primary NORM Jose[place] [id number] TR Insurance:MEDICAL BOWLESDOB: [address] [id number] [place] [address]Yec: Number: Repository [id number] (HP) Date:5457-58-97DL [address] [place] [address]FC: 11/29/2018 Secondary NOT GIVENUNK Josee Insurance:SELF PAY [facility] Number: Effective Repository Date:2018-11-29 11/28/2018 SHWETA Primary NORM [place] [facility] BOWLESDOB: Insurance:MEDICAL BOWLESDOB: [facility] [id number] [facility] Number: [address] [place] [address], [id number] [address] [place] [address]Tpg: Date: [facility]40 (HP) 11/15/2018 SHWETA B Primary NORM [place] [id number] TR Insurance:MEDICAL BOWLESDOB: [address] [id number] [place] [address]Efj: Number: Repository [id number] (HP) Date:4504-65-14FJ [address] [address]KT: 11/15/2018 Secondary NOT GIVENUNK Josee Insurance:SELF PAY [facility] Number: Effective Repository Date:2018-11-15 11/15/2018 SHWETA B Primary NORM [place] [id number] TR Insurance:MEDICAL BOWLESDOB: [address] [id number] [place] [address]Obp: Number: Repository [id number] (HP) Date:3086-24-09SG [address] [place] [address]UP: 11/15/2018 Secondary NOT GIVENUNK [place] Insurance:SELF PAY [facility] Number: Effective Repository Date:2018-11-14 11/11/2018 SHWETA Vallecillo's BOWLESDOB: Insurance:MEDICAL BOWLESDOB: [facility] [id number] Repository [facility] Number: [address], [id number] [address] [place] [address]Dmn: [place]: [place] [address] () 10/28/2018 SHWETA Vallecillo's BOWLESDOB: Insurance:MEDICAL BOWLESDOB: [facility] [id number] [facility] Number: [address], [id number] [address] [place] [address], [place] [address]Pdw: [place]: [place] [address] (HP) 10/16/2018 SHWETA Tripp [id number] TR Insurance:MEDICAL BOWLESDOB: [address] [id number] [facility] [address]Zcl: Number: Repository [id number] () Date:[id number] [address]WS: 10/16/2018 Secondary NOT GIVENUNK [place] Insurance:SELF PAY [facility] Number: Effective Repository Date:2018-10-16 10/10/2018 SHWETA Mcmahons BOWLESDOB: Insurance:MEDICAL BOWLESDOB: [facility] [id number] [address] [facility] Number: [address], [id number] [address] [place] [address]Wyd: [place]: [place] [address] (HP) 10/07/2018 [place] B Primary NORM [place] [id number] TR Insurance:MEDICAL BOWLESDOB: [address] 1969-56-02HTTMesilla Valley Hospital [address]Tro: Number: Repository [id number] (HP) Date:1352-26-13TY [address] [place] [address]AI: 10/07/2018 Secondary NOT GIVENUNK [place] Insurance:SELF PAY [facility] Number: Effective Repository Date:2018-10-07 09/25/2018 [facility] NORM [facility] BOWLESDOB: Insurance:MEDICAL BOWLESDOB: [facility] [id number] [facility] Number: [address] [place] [address], [id number] [address] [place] [address]Yqv: Date: [place] [address] () 09/17/2018 [facility] Primary NORM [place] [id number] TR Insurance:MEDICAL BOWLESDOB: [address] 6209-42-66MNWMesilla Valley Hospital [address]Tps: Number: Repository [id number] () Date:2461-22-68GV [address] [address]SX: 09/17/2018 Secondary NOT GIVENUNK [place] Insurance:SELF PAY [facility] Number: Effective Repository Date:2018-09-17 09/11/2018 [facility] NORM [facility] BOWLESDOB: Insurance:MEDICAL BOWLESDOB: [facility] [id number] [facility] Number: [address] [place] [address], [id number] [address] [place] [address]Lht: Date: [facility]40 () 09/11/2018 [facility] NORM [facility] BOWLESDOB: Insurance:MEDICAL BOWLESDOB: [facility] [id number] [facility] Number: [address], [id number] [address] [place], [place] [address]Tel: Date: [place] [address] (HP) 08/20/2018 SHWETA Louis Primary NORM [place] [id number] TR Insurance:MEDICAL BOWLESDOB: [address] 8325-83-17NZYMesilla Valley Hospital [address]Uge: Number: Repository [id number] (HP) Date:3690-60-59WK [address] [place], [place] [address]WP: 08/20/2018 Secondary NOT GIVENUNK [place] Insurance:SELF PAY [facility] Number: Effective Repository Date:2018-06-20 08/05/2018 SHWETA B Primary NORM [place] [id number] TR Insurance:MEDICAL BOWLESDOB: [address] 5276-21-33HNVMesilla Valley Hospital [address]Uex: Number: Repository [id number] (HP) Date:4635-91-86PP[place] [phone]: 08/05/2018 Secondary NOT GIVENUNK Josee Insurance:SELF PAY [facility] Number: Effective Repository Date:2018-06-20 07/22/2018 SHWETA B Primary NORM Jose[place] [id number] TR Insurance:MEDICAL BOWLESDOB: [address] 6813-93-79CUAMesilla Valley Hospital [address]Iqb: Number: Repository [id number] (HP) Date:9387-07-87RO [place] [address]WP: 07/22/2018 Secondary NOT GIVENUNK [place] Insurance:SELF PAY [facility] Number: Effective Repository Date:2018-06-20 07/08/2018 SHWETA B Primary NORM [place] [id number] TR Insurance:MEDICAL BOWLESDOB: [address] 5142-52-95YVZMesilla Valley Hospital [address]Mai: Number: Repository [id number] (HP) Date:7824-36-37NH [address] [address]RN: 07/08/2018 Secondary NOT GIVENUNK [place] Insurance:SELF PAY [facility] Number: Effective Repository Date:2018-07-08 07/08/2018 SHWETA B Primary NORM [place] [id number] TR Insurance:MEDICAL BOWLESDOB: [address] 2459-88-82ZOMMesilla Valley Hospital [address]Szn: Number: Repository [id number] (HP) Date:4015-63-48AX [address] [address]YU: 07/08/2018 Secondary NOT GIVENUNK [place] Insurance:SELF PAY [facility] Number: Effective Repository Date:2018-06-20 06/24/2018 SHWETA Primary NORM [place] [facility] BOWLESDOB: Insurance:MEDICAL BOWLESDOB: [facility] [id number] Number: [address] [id number] [address]Twc: Date: [place] [address] () 06/20/2018 SHWETA B Primary NORM [place] [id number] TR Insurance:MEDICAL BOWLESDOB: [address] 0972-53-48XFNMesilla Valley Hospital [address]Hui: Number: Repository [id number] () Date:5076-97-31ZW [address] [address]GF: 06/20/2018 Secondary NOT GIVENUNK Jose[place] Insurance:SELF PAY [facility] Number: Effective Repository Date:2018-06-20 06/20/2018 SHWETA B Primary NORM [place] [id number] TR Insurance:MEDICAL BOWLESDOB: [address]10[facility] [place] [address]Gws: Number: Repository [id number] (HP) Date:[id number] [place] [phone]: 06/20/2018 Secondary NOT GIVENUNK Jemison Insurance:SELF PAY [facility] Number: Effective Repository Date:2018-06-20 06/20/2018 [facility] NORM Jemison [id number] TR Insurance:MEDICAL BOWLESDOB: [address] [place] [address]Awd: Number: Repository [id number] (HP) Date:[id number] [place] [phone]: 06/20/2018 Secondary NOT GIVENUNK Josee Insurance:SELF PAY [facility] Number: Effective Repository Date:2018-06-20 05/10/2018 [facility] NORM Jemison [id number] TR Insurance:MEDICAL BOWLESDOB: [address] [place] [address]Vgf: Number: Repository [id number] (HP) Date:[id number] [address] [place] [id number]: 05/10/2018 Secondary NOT GIVENUNK Jemison Insurance:SELF PAY [facility] Number: Effective Repository Date:2018-05-10 05/10/2018 [facility] NORM Jemison [id number] Insurance:MEDICAL BOWLESDOB: [address], Number: Repository [place] [address]Hdp: [id number] Date:[id number] () [address] [place] [phone]: 05/10/2018 Secondary NOT GIVENUNK Josee [facility] Effective Repository Date:2018-05-10
== END 2018-12-13 10:35 | disposition home or self-care (01) ==
LOC: WPOUT 09:34 → WP 09:34
PROVIDERS: Family Provider Family Medicine; PCP Family Medicine; Referring Provider Obstetrics & Gynecology; Visit Provider Obstetrics & Gynecology
DX: O30.039 Twin pregnancy, monochorionic/diamniotic, unspecified trimester (principal); Z3A.00 Weeks of gestation of pregnancy not specified
CPT/HCPCS: 59025; 59050; 99218; G0378

== ENCOUNTER 2018-12-19 09:35 | Outpatient (CLI) | payer OTHER, SELFPAY ==
[2018-12-19 09:49] VITALS: BMI 34.5
--- NOTE | 2018-12-19 13:10 | OB.TRI.HP_ITS ---
- Problem List (1) Monochorionic diamniotic twin gestation Status: Acute Qualifiers: Comment: comanagement with MFM, q 4 week growth us and weekly bpp 32 weeks on; MFM US 11/28/18- growth q4wks, weekly NST after 32 weeks deliver at 37 weeks. (2) Status: Acute Qualifiers: Comment: NIPT normal. Anatomy survey performed but limited due to late gestational age. No gross anomalies. Persistent renal pelvis dilation Twin B- refer to treatment.Continue evaluation for twin to twin transfusion every 2 weeks. (3) Supervision of normal Status: Acute Qualifiers: Comment: PRR EDMUNDO 01/31/19 boys Amos Ledezma Sergio History of Present Illness Date of Service: 12/19/18 Was patient seen by the physician?: No Reason For Visit: NST History of Present Illness: nst Allergies No Known Allergies Allergy (Verified 12/13/18 09:46) - Pertinent Past Medical History Medical History: Past Medical History (Last Reviewed 12/13/18 @ 09:04 by Aileen Sampson) Abnormal Pap smear of cervix Surgical History: Past Surgical History (Last Reviewed 12/13/18 @ 09:04 by Aileen Sampson) History of colposcopy S/P dilation and curettage NST - FHR Rate Baby A Baseline: 140 Variability:: Moderate Accelerations:: 15 x 15 Decelerations:: None NST Reactive:: Yes FHR Category:: Category I Uterine Activity:: no regular - FHR Rate Baby B Baseline: 140 Variability:: Moderate Accelerations:: 15 x 15 Decelerations:: None NST Reactive:: Yes FHR Category:: Category I
== END 2018-12-19 10:25 | disposition home or self-care (01) ==
LOC: WPOUT 09:41 → WP 09:42
PROVIDERS: Family Provider Family Medicine; PCP Family Medicine; Referring Provider Obstetrics & Gynecology; Visit Provider Obstetrics & Gynecology
DX: O30.039 Twin pregnancy, monochorionic/diamniotic, unspecified trimester (principal); Z3A.00 Weeks of gestation of pregnancy not specified
CPT/HCPCS: 59025; 59050; 99218; G0378

== ENCOUNTER 2018-12-26 12:45 | Inpatient (IN) | payer OTHER, SELFPAY ==
[2018-12-26 10:14] VITALS: BMI 36.3
[2018-12-26 11:17] LABS: Mean Corp Hgb Conc 33.3 g/gl (32-36); Mean Corpuscular Hgb 28.1 pg (27.0-32.0); Mean Corpuscular Volume 84.2 fL (81-99); Mean Platelet Vol. 11.6 fl (6.2-12.0); Platelet Count 178 K/mm3 (150-450); RBC Distribution Width CV 12.5 % (11.6-14.6); RBC Distribution Width SD 37.2 fl (35.1-43.9); Red Blood Count 3.92 M/mm3 (4.2-5.4); Scan Indicated on CBC? Y/N NO; White Blood Count 8.3 K/mm3 (4.4-11.0)
[2018-12-26 11:26] LABS: International Normalized Ratio 0.9; Partial Thromboplast Time 25.8 Seconds (24.1-36.2); Prothrombin Time (Protime)PT. 12.4 SECONDS (11.7-14.9)
[2018-12-26 11:36] LABS: AST(SGOT) 33 U/L (15-37); Alanine Aminotransfer ALT/SGPT 39 U/L (13-56); Creatinine, Serum 0.87 mg/dL (0.55-1.02); EST Glomerular Filtration Rate 80 mL/min (>60); Est Glom Filt Rate - Afr Amer 97 mL/min (>60); Estimated Creatinine Clearance 86.91 ml/min; Uric Acid 5.9 mg/dL (2.6-6.0)
[2018-12-26 12:31] LABS: Protein, Urine (Random) 467.2 mg/dL (<11.9); Protein:Creat Ratio 2485 mg/g CRE (0-200)
[2018-12-26] MEDS: Betamethasone/Betamethasone 30 MG/5 ML Vial 12 MG IM (13:40)
--- NOTE | 2018-12-26 15:38 | PCM.HP.OB ---
- Problem List (1) Preeclampsia Status: Acute (2) Monochorionic diamniotic twin gestation Status: Acute Qualifiers: Comment: comanagement with MFM, q 4 week growth us and weekly bpp 32 weeks on; MFM US 11/28/18- growth q4wks, weekly NST after 32 weeks deliver at 37 weeks. (3) Status: Acute Qualifiers: Comment: NIPT normal. Anatomy survey performed but limited due to late gestational age. No gross anomalies. Persistent renal pelvis dilation Twin B-refer to treatment.Continue evaluation for twin to twin transfusion every 2 weeks. (4) Supervision of normal Status: Acute Qualifiers: Comment: PRR EDMUNDO 01/31/19 boys Amos Ledezma Sergio History Date of Admission: 12/26/18 Final EDMUNDO: 01/31/19 Gestational age: 35 Weeks and 0 Days History of this : This is a 33 year-old, , at 34w6d weeks gestational age presents with preeclampsia with mid features. BMZ x 1 was given and she denies any SOLITARIO BV Medical History: Medical History (Last Reviewed 12/13/18 @ 09:04 by Aileen Sampson) Abnormal Pap smear of cervix R87.619 Surgical History: Surgical History (Last Reviewed 12/13/18 @ 09:04 by Aileen Sampson) History of colposcopy Z98.890 S/P dilation and curettage Z98.890 Allergies No Known Allergies Allergy (Verified 12/13/18 09:46) Home Medications: Home Medications Aspirin [Aspirin, Baby] 81 mg PO DAILY@0800 12/13/18 Calcium Carbonate [Calcium] 500 mg PO DAILY 12/13/18 Folic Acid 1 mg PO DAILY 12/13/18 Vits [Prenatabs FA] 1 tablet PO DAILY 12/13/18 Vitamin D3 400 PO DAILY 12/26/18 blood pressure test kit-medium cuff See Dose Instructions .ROUTE .MEDSUPPLY #1 ea 12/27/18 Smoking Status: Never smoker Number of Fetus(es): 2 Heart Tracing: A 140 moderate variability reactive no decelerations category I tracing B 140 moderate variability reactive no decelerations category I tracing [place]: regular History Past Pregnancies: Past Pregnancies Delivery Date Name GA/Weeks Outcome Route Weight Gender Labor Length Anesthesia Delivery Location Provider FOB Labs: Mom[facility] Microbiology 12/26/18 Unknown Genital vaginal Group B Streptococcus Culture - Pending Mom[facility] Problem List Problem Status Onset Code Preeclampsia Acute O14.90 Mom[facility] Labs & Results 12/26/18 12/26/18 12/26/18 11:00 11:00 11:00 WBC 8.3 RBC 3.92 L Hgb 11.0 L Hct 33.0 L MCV 84.2 MCH 28.1 MCHC 33.3 RDW 12.5 RDW Differential 37.2 Plt Count 178 MPV 11.6 Immature Gran % (Auto) Neut % (Auto) Lymph % (Auto) [place] % (Auto) Eos % (Auto) Baso % (Auto) Absolute Neuts (auto) Absolute Lymphs (auto) Total Counted PT 12.4 INR 0.9 APTT 25.8 Sodium Potassium Chloride Carbon Dioxide Anion Gap BUN Creatinine 0.87 Estim Creat Clear Calc 86.91 Est GFR (MDRD) Af Amer 97 Est GFR (MDRD) Non-Af 80 BUN/Creatinine Ratio Glucose Uric Acid 5.9 Calcium Total Bilirubin AST 33 ALT 39 Alkaline Phosphatase Total Protein Albumin Globulin Albumin/Globulin Ratio U Random Total Protein Urine Collection Time Timed Urine Volume Urine Creatinine Creatinine Clearance Ur Total Protein 24 Hr Protein/Creatinin Ratio Urine Total Protein Group B Strep DNA Specimen Comment 12/26/18 12/26/18 12/26/18 11:55 13:30 13:30 WBC RBC Hgb Hct MCV MCH MCHC RDW RDW Differential Plt Count MPV Immature Gran % (Auto) Neut % (Auto) Lymph % (Auto) [place] % (Auto) Eos % (Auto) Baso % (Auto) Absolute Neuts (auto) Absolute Lymphs (auto) Total Counted PT INR APTT Sodium Potassium Chloride Carbon Dioxide Anion Gap BUN Creatinine 0.8 Estim Creat Clear Calc Est GFR (MDRD) Af Amer 115 Est GFR (MDRD) Non-Af 95 BUN/Creatinine Ratio Glucose Uric Acid Calcium Total Bilirubin AST ALT Alkaline Phosphatase Total Protein Albumin Globulin Albumin/Globulin Ratio U Random Total Protein 467.2 H Urine Collection Time 24.0 24.0 Timed Urine Volume 1400 1400 Urine Creatinine 188.00 120.0 Creatinine Clearance 156 Ur Total Protein 24 Hr 6449.8 H Protein/Creatinin Ratio 2485 H Urine Total Protein Not Reportable Group B Strep DNA Specimen Comment 12/26/18 12/27/1819 14:20 06:05 06:05 WBC 11.5 H RBC 3.89 L Hgb 10.8 L Hct 32.3 L MCV 83.0 MCH 27.8 MCHC 33.4 RDW 12.7 RDW Differential 38.0 Plt Count 205 MPV 12.7 H Immature Gran % (Auto) 0.600 Neut % (Auto) 84.3 H Lymph % (Auto) 10.9 L [place] % (Auto) 4.2 Eos % (Auto) 0.0 Baso % (Auto) 0.0 Absolute Neuts (auto) 9.7 H Absolute Lymphs (auto) 1.25 Total Counted Not Reportable PT INR APTT Sodium 137 Potassium 4.4 Chloride 105 Carbon Dioxide 20.0 L Anion Gap 12 BUN 14 Creatinine 0.75 Estim Creat Clear Calc 100.81 Est GFR (MDRD) Af Amer 115 Est GFR (MDRD) Non-Af 95 BUN/Creatinine Ratio 18.7 Glucose 90 Uric Acid Calcium 8.2 L Total Bilirubin 0.60 AST 24 ALT 31 Alkaline Phosphatase 191 H Total Protein 5.8 L Albumin 2.1 L Globulin 3.7 Albumin/Globulin Ratio 0.6 L U Random Total Protein Urine Collection Time Timed Urine Volume Urine Creatinine Creatinine Clearance Ur Total Protein 24 Hr Protein/Creatinin Ratio Urine Total Protein Group B Strep DNA Negative Specimen Comment Not Reportable 12/27/18 12/27/18 18:25 18:25 WBC 12.4 H RBC 4.08 L Hgb 11.2 L Hct 34.1 L MCV 83.6 MCH 27.5 MCHC 32.8 RDW 12.8 RDW Differential 38.3 Plt Count 231 MPV 12.3 H Immature Gran % (Auto) Neut % (Auto) Lymph % (Auto) [place] % (Auto) Eos % (Auto) Baso % (Auto) Absolute Neuts (auto) Absolute Lymphs (auto) Total Counted PT INR APTT Sodium 136 Potassium 4.3 Chloride 102 Carbon Dioxide 22.0 Anion Gap 12 BUN 15 Creatinine 0.95 Estim Creat Clear Calc 79.59 Est GFR (MDRD) Af Amer 88 Est GFR (MDRD) Non-Af 73 BUN/Creatinine Ratio 15.8 Glucose 119 H Uric Acid Calcium 8.6 Total Bilirubin 0.50 AST 22 ALT 33 Alkaline Phosphatase 218 H Total Protein 6.4 Albumin 2.4 L Globulin 4.0 Albumin/Globulin Ratio 0.6 L U Random Total Protein Urine Collection Time Timed Urine Volume Urine Creatinine Creatinine Clearance Ur Total Protein 24 Hr Protein/Creatinin Ratio Urine Total Protein Group B Strep DNA Specimen Comment Social History Smoking Status Never smoker Expected Infant Delivery Method: Spontaneous Vaginal Review of Systems Constitutional: Denies: Fever, Malaise Eyes: Denies: Blurred vision, Vision Change HEENT: Denies: Head Aches, Visual Changes Cardiovascular: Denies: Chest Pain, Palpitations Respiratory: Denies: Cough, Shortness of Breath, Wheezing Gastrointestinal: Denies: Abdominal Pain, Diarrhea, Nausea, Vomiting Genitourinary: Denies: Dysuria, Hematuria Musculoskeletal: Reports: - - edema. Denies: Joint Pain, Muscle pain Skin: Denies: Lesions, Rash Neurological: Denies: Blurred vision, Focal weakness, Headaches Psychiatric: Denies: Anxiety, Depression Endocrine: Denies: Heat/ Cold Intolerance Hematologic/ Lymphatic: Denies: Easy Bruising, Easy Bleeding Physical Exam General: Alert, Cooperative, No apparent distress HEENT: Atraumatic, Normocephalic. Negative for: Thyromegaly, Lymphadenopathy Cardiovascular: Regular rate Lungs: Normal air movement Abdomen: Soft, Non Tender, Gravid Extremities:: Other - 3+ edema Neurological: Deep Tendon Reflexes 2+/4 and Symmetrical, Neuro grossly intact. Negative for: Clonus NOVELTY WORKER: Normal external genitalia. Negative for: Vulvar lesions Estimated gestational size: Appropriate for gestational size Presentation: - - Vtx/Vtx Assessment/Plan All Active Problems (Last Reviewed 12/13/18 @ 09:04 by Aileen Sampson) Preeclampsia (Acute) Monochorionic diamniotic twin gestation (Acute) (Acute) Supervision of normal (Acute) screening encounter (Resolved) Twin (Ruled-out) This is a 33 year-old, , at 34w6d weeks gestational age. 1. preeclampsia with mild features- normal bloodwork, follow serial labs and admit for monitoring bps 2. prematurity- give BMZ x 2 3. Twins- [place]/Di plan
[2018-12-26 15:53] LABS: Group B Strep DNA By PCR Negative (Negative); Internal Control PASS; Probe Check PASS; Specimen Processing Control PASS
[2018-12-27 06:26] LABS: Absolute Lymphocyte Count 1.25 X10^3/ul (0.83-4.51); Absolute Neutrophil Count 9.7 X10^3/uL (2.0-7.7); Hematocrit 32.3 % (37-47); Hemoglobin 10.8 g/dl (12.0-15.0); Lymphocyte # 1.25 X10^3/ul (4.0); Lymphocyte % 10.9 % (19-41); Mean Corp Hgb Conc 33.4 g/gl (32-36); Mean Corpuscular Hgb 27.8 pg (27.0-32.0); Mean Platelet Vol. 12.7 fl (6.2-12.0); Monocyte# 0.48 X10^3/uL; Monocyte% 4.2 % (0-10); Neutrophil # 9.67 X10^3/uL (2.7-7.7); Neutrophil % 84.3 % (47-70); POSITIVE COUNT NO; POSITIVE DIFFERENTIAL NO; POSITIVE MORPHOLOGY NO; Platelet Count 205 K/mm3 (150-450); RBC Distribution Width CV 12.7 % (11.6-14.6); Red Blood Count 3.89 M/mm3 (4.2-5.4); White Blood Count 11.5 K/mm3 (4.4-11.0)
[2018-12-27 06:40] LABS: ALB/GLOB Ratio 0.6 RATIO (0.9-2.4); AST(SGOT) 24 U/L (15-37); Alanine Aminotransfer ALT/SGPT 31 U/L (13-56); Albumin, Serum 2.1 g/dL (3.2-5.0); Alkaline Phosphatase 191 U/L (45-117); Anion Gap 12 (5-15); BUN 14 mg/dL (7-18); BUN/Creat Ratio 18.7 RATIO (10-20); Calcium,Total 8.2 mg/dL (8.5-10.1); Chloride 105 mmol/L (98-107); Creatinine, Serum 0.75 mg/dL (0.55-1.02); EST Glomerular Filtration Rate 95 mL/min (>60); Est Glom Filt Rate - Afr Amer 115 mL/min (>60); Estimated Creatinine Clearance 100.81 ml/min; Globulin 3.7 g/dL (2.2-4.2); Glucose 90 mg/dL (74-106); Potassium 4.4 mmol/L (3.5-5.1); Protein, Total 5.8 g/dL (6.4-8.2); Sodium Level 137 mmol/L (136-145)
[2018-12-27] MEDS: 0.9% Saline Lock 10 ML Syringe IV ×2 (10:31→20:00)
[2018-12-27] MEDS: Betamethasone/Betamethasone 30 MG/5 ML Vial 12 MG IM (12:47)
[2018-12-27 14:30] LABS: Creat.Clear Total Volume 1400 mL; Creatinine Clearance 156 ml/min (100-200); Creatinine Serum Creat 0.8 mg/dL (0.6-1.0); EST Glomerular Filtration Rate 95 mL/min (>60); Est Glom Filt Rate - Afr Amer 115 mL/min (>60)
[2018-12-27 14:59] LABS: 24 Hour Urine Protein 6449.8 mg/24HR (<150 MG/24HR); 24HR. UA Prot. Total Volume 1400 mL
[2018-12-27 18:34] LABS: Hematocrit 34.1 % (37-47); Hemoglobin 11.2 g/dl (12.0-15.0); Mean Corp Hgb Conc 32.8 g/gl (32-36); Mean Corpuscular Hgb 27.5 pg (27.0-32.0); Mean Corpuscular Volume 83.6 fL (81-99); Mean Platelet Vol. 12.3 fl (6.2-12.0); Platelet Count 231 K/mm3 (150-450); RBC Distribution Width CV 12.8 % (11.6-14.6); RBC Distribution Width SD 38.3 fl (35.1-43.9); Red Blood Count 4.08 M/mm3 (4.2-5.4); White Blood Count 12.4 K/mm3 (4.4-11.0)
[2018-12-27 18:35] LABS: Scan Indicated on CBC? Y/N NO
[2018-12-27 18:56] LABS: ALB/GLOB Ratio 0.6 RATIO (0.9-2.4); AST(SGOT) 22 U/L (15-37); Alanine Aminotransfer ALT/SGPT 33 U/L (13-56); Albumin, Serum 2.4 g/dL (3.2-5.0); Alkaline Phosphatase 218 U/L (45-117); Anion Gap 12 (5-15); BUN 15 mg/dL (7-18); BUN/Creat Ratio 15.8 RATIO (10-20); Calcium,Total 8.6 mg/dL (8.5-10.1); Chloride 102 mmol/L (98-107); Creatinine, Serum 0.95 mg/dL (0.55-1.02); EST Glomerular Filtration Rate 73 mL/min (>60); Est Glom Filt Rate - Afr Amer 88 mL/min (>60); Estimated Creatinine Clearance 79.59 ml/min; Glucose 119 mg/dL (74-106); Potassium 4.3 mmol/L (3.5-5.1); Protein, Total 6.4 g/dL (6.4-8.2); Sodium Level 136 mmol/L (136-145)
--- NOTE | 2018-12-27 20:14 | PCM.PN.OB ---
Patient Problems: Active and Suspected Problems (Last Reviewed 12/13/18 @ 09:04 by Aileen Sampson) Preeclampsia (Acute) Subjective: doing well no complaints pain controlled no CP SOB N V good fm no regular ctx no SOLITARIO BV - Physical Exam General: Alert, Oriented x3 HEENT: Atraumatic Lungs: Normal air movement Cardiovascular: Regular rate Abdomen: Soft, Non Tender Weight: 232 lb Body Mass Index (BMI) 36.3 Intake and Output for Last 24 Hours 12/25/18 12/26/18 12/27/18 23:59 23:59 23:59 Intake Total 960 / 960 1660 / 1660 Output Total 200 / 200 1160 / 1160 Balance 760 / 760 500 / 500 Laboratory Tests Past 24 Hrs 12/26/18 12/26/18 12/27/18 13:30 13:30 06:05 WBC 11.5 H RBC 3.89 L Hgb 10.8 L Hct 32.3 L MCV 83.0 MCH 27.8 MCHC 33.4 RDW 12.7 RDW Differential 38.0 Plt Count 205 MPV 12.7 H Immature Gran % (Auto) 0.600 Neut % (Auto) 84.3 H Lymph % (Auto) 10.9 L [place] % (Auto) 4.2 Eos % (Auto) 0.0 Baso % (Auto) 0.0 Absolute Neuts (auto) 9.7 H Absolute Lymphs (auto) 1.25 Total Counted Not Reportable Sodium Potassium Chloride Carbon Dioxide Anion Gap BUN Creatinine 0.8 Estim Creat Clear Calc Est GFR (MDRD) Af Amer 115 Est GFR (MDRD) Non-Af 95 BUN/Creatinine Ratio Glucose Calcium Total Bilirubin AST ALT Alkaline Phosphatase Total Protein Albumin Globulin Albumin/Globulin Ratio Urine Collection Time 24.0 24.0 Timed Urine Volume 1400 1400 Urine Creatinine 120.0 Creatinine Clearance 156 Ur Total Protein 24 Hr 6449.8 H Urine Total Protein Not Reportable 12/27/18 12/27/18 12/27/18 06:05 18:25 18:25 WBC 12.4 H RBC 4.08 L Hgb 11.2 L Hct 34.1 L MCV 83.6 MCH 27.5 MCHC 32.8 RDW 12.8 RDW Differential 38.3 Plt Count 231 MPV 12.3 H Immature Gran % (Auto) Neut % (Auto) Lymph % (Auto) [place] % (Auto) Eos % (Auto) Baso % (Auto) Absolute Neuts (auto) Absolute Lymphs (auto) Total Counted Sodium 137 136 Potassium 4.4 4.3 Chloride 105 102 Carbon Dioxide 20.0 L 22.0 Anion Gap 12 12 BUN 14 15 Creatinine 0.75 0.95 Estim Creat Clear Calc 100.81 79.59 Est GFR (MDRD) Af Amer 115 88 Est GFR (MDRD) Non-Af 95 73 BUN/Creatinine Ratio 18.7 15.8 Glucose 90 119 H Calcium 8.2 L 8.6 Total Bilirubin 0.60 0.50 AST 24 22 ALT 31 33 Alkaline Phosphatase 191 H 218 H Total Protein 5.8 L 6.4 Albumin 2.1 L 2.4 L Globulin 3.7 4.0 Albumin/Globulin Ratio 0.6 L 0.6 L Urine Collection Time Timed Urine Volume Urine Creatinine Creatinine Clearance Ur Total Protein 24 Hr Urine Total Protein Medical Necessity - Tobacco Use Smoking Status: Never smoker Assessment/Plan All Active Problems (Last Reviewed 12/13/18 @ 09:04 by Ailene Sampson) Preeclampsia (Acute) Monochorionic diamniotic twin gestation (Acute) (Acute) Supervision of normal (Acute) screening encounter (Resolved) Twin (Ruled-out) This is a 33 year-old, , at 35 weeks gestational age. 1. preeclampsia with severe features- normal bloodwork, follow labs and plan IOL tomorrow at 48 hours after steroids 2. prematurity- s/p BMZ x 2 3. Twins- [place]/Di plan - will plan pit IOL tomorrow
[2018-12-28 05:14] LABS: Absolute Lymphocyte Count 1.31 X10^3/ul (0.83-4.51); Absolute Neutrophil Count 10.4 X10^3/uL (2.0-7.7); Basophil# 0.02 X10^3/uL; Basophil% 0.2 % (0-1); Hematocrit 32.8 % (37-47); Hemoglobin 10.9 g/dl (12.0-15.0); Lymphocyte # 1.31 X10^3/ul (4.0); Lymphocyte % 10.3 % (19-41); Mean Corp Hgb Conc 33.2 g/gl (32-36); Mean Corpuscular Hgb 27.7 pg (27.0-32.0); Mean Corpuscular Volume 83.5 fL (81-99); Mean Platelet Vol. 12.7 fl (6.2-12.0); Monocyte# 0.76 X10^3/uL; Neutrophil % 81.5 % (47-70); Platelet Count 204 K/mm3 (150-450); RBC Distribution Width CV 12.4 % (11.6-14.6); RBC Distribution Width SD 37.1 fl (35.1-43.9); Red Blood Count 3.93 M/mm3 (4.2-5.4); White Blood Count 12.7 K/mm3 (4.4-11.0)
[2018-12-28 05:16] LABS: ALB/GLOB Ratio 0.6 RATIO (0.9-2.4); AST(SGOT) 22 U/L (15-37); Alanine Aminotransfer ALT/SGPT 30 U/L (13-56); Albumin, Serum 2.3 g/dL (3.2-5.0); Alkaline Phosphatase 202 U/L (45-117); Anion Gap 13 (5-15); BUN 16 mg/dL (7-18); BUN/Creat Ratio 17.9 RATIO (10-20); Calcium,Total 8.2 mg/dL (8.5-10.1); Chloride 106 mmol/L (98-107); EST Glomerular Filtration Rate 78 mL/min (>60); Est Glom Filt Rate - Afr Amer 94 mL/min (>60); Estimated Creatinine Clearance 84.01 ml/min; Globulin 3.9 g/dL (2.2-4.2); Glucose 106 mg/dL (74-106); Potassium 4.4 mmol/L (3.5-5.1); Protein, Total 6.2 g/dL (6.4-8.2); Sodium Level 140 mmol/L (136-145)
[2018-12-28 05:21] LABS: Differential Indicated SCAN CRITERIA MET; POSITIVE COUNT YES; POSITIVE DIFFERENTIAL NO; POSITIVE MORPHOLOGY YES
[2018-12-28] MEDS: 0.9% Saline Lock 10 ML Syringe IV ×3 (08:24→22:34)
[2018-12-28] MEDS: Ferrous Sulfate 325 MG Tablet PO (09:47)
[2018-12-28] MEDS: Prenatal Vits Tablet 1 TABLET PO (13:02)
[2018-12-28] MEDS: Lactated Ringers 1,000 ML 50 ML IV (13:10)
[2018-12-28] MEDS: Oxytocin 30 units/NS 500 ml 30 UNITS/500 ML IV.SOLN IV (13:10)
[2018-12-28] MEDS: 0.9% Normal Saline 100 ML IV.SOLN. INTRA-UTER (14:13)
[2018-12-28] MEDS: fentaNYL-bupivacaine (epidural) 100 ML BAG EPIDURAL (19:41)
--- NOTE | 2018-12-28 20:53 | PLAC_PTH ---
PATIENT: SHWETA WYATT LOC: [facility] U#:[id number] AGE/SX: 33/F ROOM: WP012 RE12/28/[address]: Dr. Salena Purvis MD : 1985 BED: 1 DIS: 12/30/2018 SPEC #: [id number] RECD: 12/29/18 13:21 STATUS: LOLA REQ #: [id number] CALLUM: 12/28/18 20:[address]: Salena Purvis DEPT: SURGICAL PATHOLOGY RECD BY: Kenney Coates ENTERED: 12/30/18 09:37 SP TYPE: PLACENTA OTHR DR: MD Dr. Marko Caldera MD Dr. Sharon Marcanthony, MD Tissues: Placenta, NOS Procedures: Surgery Specimen Level V Comments: @ Ordering doctor for SUV edited from to @ by RGOOD at 12/31/18 1547 @ Submitting doctor edited from to @ by RGOOD at 12/31/18 1547 HEADER OPERATION: Vaginal delivery PRE-OP DIAGNOSIS: Twin gestation TISSUE SUBMITTED: Placenta MICROSCOPIC DIAGNOSIS Dichorionic diamniotic twin placenta: Placenta A (320 gm): Umbilical cord - trivascular with no inflammation. Peripheral membranes - no pathologic change. Placental disc - mild Coleen-Elmo change and mildly increased intraparenchymal fibrin plaques. Placenta B (239 gm): Umbilical cord - trivascular with no inflammation. Placental membranes - no pathologic change. Placental disc - mild Coleen-Elmo change and mildly increased intraparenchymal fibrin plaques. AM:miriam 01/01/19 MICROSCOPIC DESCRIPTION Slides are reviewed. GROSS DESCRIPTION SPECIMEN: TWIN PLACENTA / CLINICAL INFORMATION: A. Weight: A - 2.145 kg; B - 2.275 kg B. Gestational Age: 35 weeks C. Sex: A - Male, B - Male The specimen consists of two placental discs, two umbilical cords, dividing membrane and peripheral membranes. The two discs are connected by the dividing membrane. One umbilical cord contains a clip and is designated placental A. Physical manipulation of the dividing membrane reveals four distinct membranes. PLACENTA A: (with clip) PLACENTAL WEIGHT (POST FIXATION): 320 gm PLACENTAL DIMENSIONS: 17 x 12 x 3 cm PLACENTAL SHAPE: The disc is disrupted but appears to be complete. PLACENTAL WEIGHT FOR GESTATIONAL AGE: Within 10-99th percentile MEMBRANES - Present A. Insertion: Marginal B. Site of rupture from edge: At edge of placental disc C. Color of membrane: Soriano-parham D. Abnormalities: None UMBILICAL CORD - Present A. Color: Soriano-parham B. Insertion: Marginal C. Length: 47 cm D. Diameter: 1.5 cm E. Number of vessels: Three F. Abnormalities: None PLACENTAL DISC - Present A. Color of surface: Soriano-parham B. surface abnormalities: None C. Maternal cotyledons: Intact with minimal tears D. Attached retro placental clot: No clot E. Cut surface: Dark red and spongy F. Lesions: Serial sections of the placental disc reveals two firm soriano-white lesions ranging in size from 1 to 1.5 cm in greatest dimension. G. Separate clot: Absent PLACENTA B: PLACENTAL WEIGHT (POST FIXATION): 239 gm PLACENTAL DIMENSIONS: 18 x 15 x 2 cm PLACENTAL SHAPE: Disrupted but appears to be complete. PLACENTAL WEIGHT FOR GESTATIONAL AGE: Under 10th percentile MEMBRANES - Present A. Insertion: Marginal B. Site of rupture from edge: At edge of placental disc C. Color of membrane: Soriano-parham D. Abnormalities: None UMBILICAL CORD - Present A. Color: Soriano-parham B. Insertion: Eccentric C. Length: 38 cm D. Diameter: 1.5 cm E. Number of vessels: Three F. Abnormalities: None PLACENTAL DISC - Present A. Color of surface: Soriano-parham B. surface abnormalities: None C. Maternal cotyledons: Intact with minimal tears D. Attached retro placental clot: No clot E. Cut surface: Dark red and spongy F. Lesions: None G. Separate clot: Absent SECTIONS SUBMITTED: 1 - Dividing membrane 2 - Peripheral membrane and umbilical cord placenta A ( end inked) 3 - Placental disc A 4 - Placental disc A 5 - Placental disc A 6 - Placental membranes and cord B ( end inked) 7 - Placental disc B 8 - Placental disc B 9 - Placental disc B AM:miriam 12/31/18 TC:5 CPT: 79376 x2
[2018-12-28] MEDS: Oxytocin 30 units/NS 500 ml 30 UNITS/500 ML IV.SOLN 334 UNITS IV (20:55)
[2018-12-28] MEDS: Oxytocin 30 units/NS 500 ml 30 UNITS/500 ML IV.SOLN 167 UNITS IV (21:26)
--- NOTE | 2018-12-28 21:34 | PCM.PN.BLA ---
Progress Note 33 yo @ 35w1d will plan IOL preeclampsia with severe features and mono di twins as recommend by MFM. s/p steroids x 2. Pit and fb then arom clear fluid, epidural. vertex vertex confirmed by ultrasound prior to starting induction. reasurring fht cat I x 2
--- NOTE | 2018-12-28 21:34 | PCM.OB.VAG ---
- Problem List (1) Preeclampsia Status: Acute (2) Monochorionic diamniotic twin gestation Status: Acute Qualifiers: Comment: comanagement with MF, q 4 week growth us and weekly bpp 32 weeks on; [facility] US 11/28/18- growth q4wks, weekly NST after 32 weeks deliver at 37 weeks. (3) Status: Acute Qualifiers: Comment: NIPT normal. Anatomy survey performed but limited due to late gestational age. No gross anomalies. Persistent renal pelvis dilation Twin B-refer to treatment.Continue evaluation for twin to twin transfusion every 2 weeks. (4) Supervision of normal Status: Acute Qualifiers: Comment: PRR EDMUNDO 01/31/19 boys Amos Ledezma Sergio Vaginal Delivery Maternal Presentation: Medically Indicated Induction @ 35w1d presents IOL preeclampsia with severe features and mono di twins as recommended by [facility] Method of Induction: Pitocin, Sims Bulb, Amniotomy Medical Reason for Induction: Preeclampsia, eclampsia Amniotic Membrane Rupture Type: Artificial Amniotic Fluid Description: Clear Final EDMUNDO: 01/31/19 Gestational age: 35 Weeks and 2 Days Date of Procedure: 12/28/18 Pre-Operative Diagnosis: preeclampsia with severe features by proteinuria and borderline renal funct Post-Operative Diagnosis: same Surgery/ Procedure Performed: Spontaneous Vaginal Delivery, - - bedside currettage Type of Anesthesia: Epidural Description of Procedure: Patient began pushing and delivered the head in the JAIME presentation. The head was delivered atraumatically and a loose nuchal cord ?1 was identified and easily reduced over the 's head. The anterior and posterior shoulders delivered without complication followed by the rest of the infant and the infant was placed on the maternal abdomen. Delayed cord clamping was employed for approximately 60 seconds. The cord was clamped cut and marked with a cord clamp. second was confirmed vertex. severa lcontractions passed and the was in the plus 1 station and well applied so the membranes were ruptured and after pushing several contractions, the patient pushed and delivered the head in the JAIME presentation. The head was delivered atraumatically. The anterior and posterior shoulders delivered without complication followed by the rest of the infant and the infant was placed on the maternal abdomen. Delayed cord clamping was employed for approximately 60 seconds. Cord was clamped and cut and gentle traction was applied to the cord and the placentas delivered but were noticed to be fragmented but both with three-vessel cords. using a banjo currett, multiple passes were made and a small amount of retained placenta tissue was removed, no complications. The perineum and vagina were inspected and noted to have a small 2nd degree laceratio nwhich was repaired in the usual fashion with 2-0 vicryl. EBL was 400 cc. Patient and infants tolerated delivery well. Presentation: JAIME Placental Delivery Description: Spontaneous Placenta Disposition: [facility] Cord Entanglement: Around neck x 1, loose Estimated Blood Loss: 400 A gender: Male Episiotomy Description: None Laceration: Perineal Extension/lac, 2nd degree Medications given after delivery: IV Pitocin Complications: - - retained placental fragments, bedside currettage performed with jessica munoz
[2018-12-29] MEDS: Naproxen 250 MG Tablet PO ×3 (01:50→20:36)
[2018-12-29 04:50] VITALS: BP 134/95; PULSE 60; RESP 18; TEMP 36.1
[2018-12-29] MEDS: Acetaminophen 500 MG Tablet 1000 MG PO ×2 (07:02→17:51)
[2018-12-29 07:18] LABS: Hematocrit 28.5 % (37-47); Hemoglobin 9.3 g/dl (12.0-15.0); Mean Corp Hgb Conc 32.6 g/gl (32-36); Mean Corpuscular Hgb 27.6 pg (27.0-32.0); Mean Corpuscular Volume 84.6 fL (81-99); Mean Platelet Vol. 12.3 fl (6.2-12.0); Platelet Count 186 K/mm3 (150-450); RBC Distribution Width SD 39.6 fl (35.1-43.9); Red Blood Count 3.37 M/mm3 (4.2-5.4); White Blood Count 13.3 K/mm3 (4.4-11.0)
[2018-12-29 07:19] LABS: Scan Indicated on CBC? Y/N NO
[2018-12-29 08:00] VITALS: BP 130/84; PULSE 82; RESP 18; TEMP 36.7; O2SAT 96
[2018-12-29 08:45] LABS: ALB/GLOB Ratio 0.7 RATIO (0.9-2.4); AST(SGOT) 24 U/L (15-37); Alanine Aminotransfer ALT/SGPT 22 U/L (13-56); Albumin, Serum 1.9 g/dL (3.2-5.0); Alkaline Phosphatase 148 U/L (45-117); Anion Gap 9 (5-15); BUN 16 mg/dL (7-18); BUN/Creat Ratio 18.9 RATIO (10-20); Calcium,Total 7.8 mg/dL (8.5-10.1); Chloride 109 mmol/L (98-107); Creatinine, Serum 0.85 mg/dL (0.55-1.02); EST Glomerular Filtration Rate 83 mL/min (>60); Est Glom Filt Rate - Afr Amer 100 mL/min (>60); Estimated Creatinine Clearance 88.95 ml/min; Globulin 2.9 g/dL (2.2-4.2); Glucose 88 mg/dL (74-106); Potassium 4.1 mmol/L (3.5-5.1); Protein, Total 4.8 g/dL (6.4-8.2); Sodium Level 141 mmol/L (136-145)
[2018-12-29 11:50] VITALS: BP 133/85; PULSE 84; RESP 16; TEMP 36.4; O2SAT 96
--- NOTE | 2018-12-29 13:26 | PN.OBGYN_ITS ---
Patient Problems: Active and Suspected Problems (Last Reviewed 12/13/18 @ 09:04 by Aileen Sampson) Preeclampsia (Acute) Subjective: doing well no complaints pain controlled no CP SOB N V ambulating well tolerating po lochia moderate, going well - Physical Exam General: Alert, Oriented x3 Vital Signs Temp Pulse Resp BP Pulse Ox 97.5 F L 84 16 133/85 H 96 12/29/18 11:50 12/29/18 11:50 12/29/18 11:50 12/29/18 11:50 12/29/18 11:50 Oxygen Delivery Method Room Air Weight: 234 lb 5.622 oz Body Mass Index (BMI) 36.3 Intake and Output for Last 24 Hours 12/27/18 12/28/18 12/29/18 23:59 23:59 23:59 Intake Total 1660 / 1660 1454 / 1454 Output Total 1160 / 1160 200 / 200 850 / 850 Balance 500 / 500 1254 / 1254 -850 / -850 Microbiology Past 72 Hours 12/26/18 Unknown Group B Streptococcus Culture - Preliminary Genital vaginal Group B Beta Streptococcus is not isolated. Laboratory Tests Past 24 Hrs 12/29/18 12/29/18 06:45 06:45 WBC 13.3 H RBC 3.37 L Hgb 9.3 L Hct 28.5 L MCV 84.6 MCH 27.6 MCHC 32.6 RDW 13.0 RDW Differential 39.6 Plt Count 186 MPV 12.3 H Sodium 141 Potassium 4.1 Chloride 109 H Carbon Dioxide 23.0 Anion Gap 9 BUN 16 Creatinine 0.85 Estim Creat Clear Calc 88.95 Est GFR (MDRD) Af Amer 100 Est GFR (MDRD) Non-Af 83 BUN/Creatinine Ratio 18.9 Glucose 88 Calcium 7.8 L Total Bilirubin 0.40 AST 24 ALT 22 Alkaline Phosphatase 148 H Total Protein 4.8 L Albumin 1.9 L Globulin 2.9 Albumin/Globulin Ratio 0.7 L Medical Necessity - Tobacco Use Smoking Status: Never smoker Assessment/Plan All Active Problems (Last Reviewed 12/13/18 @ 09:04 by Aileen Sampson) Preeclampsia (Acute) Monochorionic diamniotic twin gestation (Acute) (Acute) Supervision of normal (Acute) screening encounter (Resolved) Twin (Ruled-out) This is a 33 year-old, , at 35 weeks gestational age s/p ppd 1 1. preeclampsia with severe features- normal bloodwork, no meds needed. 2. rh positive 3. Twins- [place]/Di s/p routine care
[2018-12-29 15:22] VITALS: BP 127/74; PULSE 75; RESP 16; TEMP 36.6; O2SAT 98
[2018-12-29 20:00] VITALS: BP 140/90; PULSE 90; RESP 16; TEMP 36.4
[2018-12-30 02:30] VITALS: BP 123/86; PULSE 96; RESP 16; TEMP 36.1
[2018-12-30] MEDS: Acetaminophen 500 MG Tablet 1000 MG PO (07:46)
--- NOTE | 2018-12-30 07:51 | PCM.PN.OB ---
Patient Problems: Active and Suspected Problems (Last Reviewed 12/13/18 @ 09:04 by Aileen Sampson) Preeclampsia (Acute) Subjective: Doing well. NO CP, SOb. Plans home today. - Physical Exam General: Alert, Oriented x3 Abdomen: Soft, Non Tender - FF below U Vital Signs Temp Pulse Resp BP Pulse Ox 96.9 F L 96 16 123/86 H 98 12/30/18 02:30 12/30/18 02:30 12/30/18 02:30 12/30/18 02:30 12/29/18 15:22 Oxygen Delivery Method Room Air Weight: 234 lb 5.622 oz Body Mass Index (BMI) 36.3 Intake and Output for Last 24 Hours 12/28/18 12/29/18 12/30/18 23:59 23:59 23:59 Intake Total 1454 / 1454 Output Total 200 / 200 850 / 850 Balance 1254 / 1254 -850 / -850 Microbiology Past 72 Hours 12/26/18 Unknown Group B Streptococcus Culture - Preliminary Genital vaginal Group B Beta Streptococcus is not isolated. Laboratory Tests Past 24 Hrs 12/29/18 06:45 Sodium 141 Potassium 4.1 Chloride 109 H Carbon Dioxide 23.0 Anion Gap 9 BUN 16 Creatinine 0.85 Estim Creat Clear Calc 88.95 Est GFR (MDRD) Af Amer 100 Est GFR (MDRD) Non-Af 83 BUN/Creatinine Ratio 18.9 Glucose 88 Calcium 7.8 L Total Bilirubin 0.40 AST 24 ALT 22 Alkaline Phosphatase 148 H Total Protein 4.8 L Albumin 1.9 L Globulin 2.9 Albumin/Globulin Ratio 0.7 L Medical Necessity - Tobacco Use Smoking Status: Never smoker Assessment/Plan All Active Problems (Last Reviewed 12/13/18 @ 09:04 by Aileen Sampson) Preeclampsia (Acute) Monochorionic diamniotic twin gestation (Acute) (Acute) Supervision of normal (Acute) screening encounter (Resolved) Twin (Ruled-out) mono di twins PPD #2: Routine care. both infants well. Home today.
--- NOTE | 2018-12-30 07:54 | PCM.DCVAG ---
Additional Instructions: If you experience any of the following, contact your healthcare provider. Bleeding that soaks a pad every hour for 2 hours Fever 100.4 or higher Unrelieved incision or abdominal pain Swelling, redness, discharge or bleeding from your incision or episiotomy site Your incision begins to separate Problems urinating (including inability to urinate or burning while urinating). Visual changes Severe headache Flu-like symptoms Pain or redness in one of both of your breasts Pain, warmth, tenderness or swelling in your legs, especially the calf area Frequent nausea and vomiting Symptoms of depression or anxiety If you experience any of the following, call 911 or go to the nearest Emergency Room. Chest pain Problems breathing Seizure activity Partial or complete paralysis of a body part, slurred speech, weakness or drooping of the face, or a sudden inability to walk or hold your balance Allergies/Adverse Reactions: Allergies No Known Allergies Allergy (Verified 12/13/18 09:46) Medications to take at Discharge Aspirin [Aspirin, Baby] 81 mg PO DAILY@0800 12/13/18 Calcium Carbonate [Calcium] 500 mg PO DAILY 12/13/18 Folic Acid 1 mg PO DAILY 12/13/18 Vits [Prenatabs FA] 1 tablet PO DAILY 12/13/18 Vitamin D3 400 PO DAILY 12/26/18 blood pressure test kit-medium cuff See Dose Instructions .ROUTE .MEDSUPPLY #1 ea 12/27/18 Primary Care Physician: Giovana Rader MD [Primary Care Provider] - Test Results: Test results from this visit will be discussed in further detail at your follow-up appointment, if applicable.
[2018-12-30 07:55] VITALS: BP 140/89; PULSE 60; RESP 16; TEMP 36.4
--- NOTE | 2018-12-30 07:55 | DCINST_ITS ---
Additional Instructions: If you experience any of the following, contact your healthcare provider. * Bleeding that soaks a pad every hour for 2 hours * Fever 100.4 or higher * Unrelieved incision or abdominal pain * Swelling, redness, discharge or bleeding from your incision or episiotomy site * Your incision begins to separate * Problems urinating (including inability to urinate or burning while urinating). * Visual changes * Severe headache * Flu-like symptoms * Pain or redness in one of both of your breasts * Pain, warmth, tenderness or swelling in your legs, especially the calf area * Frequent nausea and vomiting * Symptoms of depression or anxiety If you experience any of the following, call 911 or go to the nearest Emergency Room. * Chest pain * Problems breathing * Seizure activity * Partial or complete paralysis of a body part, slurred speech, weakness or drooping of the face, or a sudden inability to walk or hold your balance Allergies/Adverse Reactions: Allergies No Known Allergies Allergy (Verified 12/13/18 09:46) Medications to take at Discharge Aspirin [Aspirin, Baby] 81 mg PO DAILY@0800 12/13/18 Calcium Carbonate [Calcium] 500 mg PO DAILY 12/13/18 Folic Acid 1 mg PO DAILY 12/13/18 Vits [Prenatabs FA] 1 tablet PO DAILY 12/13/18 Vitamin D3 400 PO DAILY 12/26/18 blood pressure test kit-medium cuff See Dose Instructions .ROUTE .MEDSUPPLY #1 ea 12/27/18 Primary Care Physician: Giovana Rader MD [Primary Care Provider] - Test Results: Test results from this visit will be discussed in further detail at your follow- up appointment, if applicable.
[2018-12-30 14:19] VITALS: BP 135/90; PULSE 93; RESP 16; TEMP 36.3
[2018-12-30 15:06] LABS: Pathologist Review Reviewed
[2019-01-01 14:13] LABS: Pathology Specimen OB SEE PATHOLOGY REPORT
--- NOTE | 2019-01-09 13:21 | NURSING ---
Follow up phone call, left voice mail.
== END 2018-12-30 14:10 | disposition home or self-care (01) | DRG 798 ==
LOC: WPOUT 13:23
PROVIDERS: Pediatrics; Admitting Provider Obstetrics & Gynecology; Family Provider Family Medicine; PCP Family Medicine; Referring Provider Obstetrics & Gynecology; Visit Provider Obstetrics & Gynecology
DX: O14.14 Severe pre-eclampsia complicating childbirth (principal); Z37.2 Twins, both liveborn; O70.1 Second degree perineal laceration during delivery; O73.1 Retained portions of placenta and membranes, without hemorrhage; O69.81X1 Labor and delivery complicated by cord around neck, without compression, fetus 1; O30.033 Twin pregnancy, monochorionic/diamniotic, third trimester; O60.14X2 Preterm labor third trimester with preterm delivery third trimester, fetus 2; O60.14X1 Preterm labor third trimester with preterm delivery third trimester, fetus 1; Z3A.35 35 weeks gestation of pregnancy
CPT/HCPCS: 36415; 59025; 59050; 76815; 80053; 82565; 82570; 82575; 84156; 84450; 84460; 84550; 85025; 85027; 85610; 85730; 86850; 86900; 87081; 87653; 88307; 96372; 99218; J7120; A4216; G0378; J0702

== ENCOUNTER → 2019-02-05 17:27 | Outpatient (CLI) | payer OTHER, SELFPAY ==
[2019-02-05 11:45] VITALS: BMI 36.3
[2019-02-09 09:06] LABS: HPV APTIMA, High Risk Negative (Negative)
== END ==
PROVIDERS: Family Provider Family Medicine; PCP Family Medicine; Referring Provider Obstetrics & Gynecology; Visit Provider Obstetrics & Gynecology
DX: Z12.4 Encounter for screening for malignant neoplasm of cervix (principal)
CPT/HCPCS: 87624; 88175; G0145

== ENCOUNTER 2019-07-20 18:52 | Emergency (ER) | payer OTHER, SELFPAY ==
[2019-02-05 11:45] VITALS: BMI 36.3
[2019-07-20 18:54] VITALS: BP 142/77; PULSE 89; RESP 16; TEMP 36.5; O2SAT 97; BMI 24.1
--- NOTE | 2019-07-20 19:30 | ED.VIS.INJ ---
History of Present Illness Chief Complaint: Head Injury Detail of Chief Complaint: facial laceration Informant: Patient Onset: Hours - 1 Mechanism/Context: Blunt Injury - hit in face w/ softball while wearing sunglasses Quality of Pain: Throbbing Location: left eyebrow Current Severity: Mild Maximum Severity: Mild Worsened by: palpation Relieved by: leaving alone Associated Symptoms: Negative for: Parasthesias, Weakness, Inability to ambulate, Loss of consciousness, Amnesia Narrative: Patient states she thinks her sunglasses are what actually caused a laceration, the softball that hit her in the face really hit mostly at her sunglasses. She denies any loss of consciousness, nausea, vomiting, or internal headache. No vision changes or eye pain. Tetanus Immunization: 5-10 years Past Medical History - Allergies and Home Meds Allergies/Adverse Reactions: Allergies No Known Allergies Allergy (Verified 07/20/19 18:52) Primary Care Physician: Giovana Rader MD [Primary Care Provider] - Past Medical History: None Smoking Status: Never smoker Review of Systems Eyes: Denies: Visual changes - bilaterally, Diplopia ENT: Reports: - - Left facial pain. Denies: Rhinorrhea Skin: Reports: Wounds - Laceration Neurological: Denies: Headache, Weakness, Numbness Physical Exam Vital Signs/Narrative: Vital Signs Temp Pulse Resp BP Pulse Ox 07/20/19 18:54 97.7 F L 89 16 142/77 H 97 General: Well nourished, Well developed, - - Well-appearing, NAD. Pleasant, conversive Head: Normocephalic, Atraumatic Eyes: Perrl, EOMI - Without pain or extraocular entrapment ENT: - - 2 cm clean, linear full-thickness laceration parallel and within the left eyebrow. Tenderness to the area with the superior orbital brim, no crepitance, no deformity, no infraorbital hypoesthesia or midface instability, no zygoma tenderness.. Negative for: Otorrhea, Nasal trauma Neck: Nontender, Full ROM Skin: Normal color, No rash, Trauma - 2 cm full-thickness linear clean laceration left eyebrow Neurological: Alert, Oriented x3, Cranial nerves II-XII grossly intact, Normal Strength, Normal Sensation Psychological: Normal affect, Normal Mood - Glascow Coma Scale Eye Opening: Spontaneous Motor: Obeys Commands Verbal: Oriented Coma Scale Total: 15 Diagnostic/Tx/Re-eval - Medical Decision Making Laceration repaired, tails left long, suture removal in 5 to 6 days, patient amenable to this. Laceration Left eyebrow Length: 3 cm Depth: Sub Q Shape: Linear Prep: Sterile Conditions, Chlorhexadine Laceration Repair: Lidocaine with epi - 1 cc locally in addition to topical LET Irrigated (ml): 20 Number of Sutures/Oconto: 4 Stitch Description: Ethilon, Simple, 6-0 ED Disposition - Plan for ED Patient: Disposition: Home or Assisted Living Diagnosis: Facial laceration Instructions: LACERATION, Face (Suture or Tape) Referrals: Giovana Rader MD [Primary Care Provider] - 5 Days for suture removal (Or urgent care/ER)
[2019-07-20] MEDS: Lidocaine/Epi/Tetracaine 50 ML 1 APPLIC TOPICAL (19:36)
[2019-07-20 20:49] VITALS: RESP 16
== END 2019-07-20 20:50 | disposition home or self-care (01) ==
PROVIDERS: Emergency Provider Emergency Medicine; Family Provider Family Medicine; PCP Family Medicine
DX: S01.81XA Laceration without foreign body of other part of head, initial encounter (principal); W21.07XA Struck by softball, initial encounter
CPT/HCPCS: 12011; 99283

== ENCOUNTER → 2021-04-26 08:57 | Outpatient (CLI) | payer BC, SELFPAY ==
[2021-04-19 08:35] VITALS: BMI 21.7
--- NOTE | 2021-04-26 09:29 | US_ITS ---
STUDY: THYROID ULTRASOUND REASON FOR EXAM: Female, 35 years old. Enlarged thyroid TECHNIQUE: Ultrasound evaluation of the thyroid was performed with real-time and static parham-scale imaging. COMPARISON: None. FINDINGS: RIGHT LOBE: The right lobe of the thyroid gland measures 4.3 cm x 1.3 cm x 1.3 cm. There is a homogeneous echotexture. There are no demonstrated solid, cystic or complex lesions. LEFT LOBE: The left lobe of the thyroid gland measures 4.2 cm x 1.4 cm x 1.1 cm. There is a homogeneous echotexture. There are no demonstrated solid, cystic or complex lesions. ISTHMUS: The isthmus measures 1.7 mm. The regional lymph nodes are normal. US/Thyroid IMPRESSION: Normal ultrasound examination of the thyroid. Electronically Signed: González Rapp MD at 15:04 EDT , Service support ,
[2021-04-26 09:57] LABS: T4 Free Direct 0.89 ng/dL (0.76-1.46); Thyroid Stim Hormone (TSH) 1.77 uIU/mL (0.358-3.74)
== END ==
PROVIDERS: PCP Family Medicine; Referring Provider Nurse Practitioner Women's Health; Visit Provider Nurse Practitioner Women's Health
DX: E04.9 Nontoxic goiter, unspecified (principal)
CPT/HCPCS: 36415; 76536; 84439; 84443

== ENCOUNTER → 2024-04-29 | Outpatient (CLI) | payer BC, SELFPAY ==
[2024-05-05 21:07] LABS: HPV APTIMA, High Risk Negative (Negative)
== END | disposition home or self-care (01) ==
LOC: LABSPEC 13:53
PROVIDERS: PCP Family Medicine; Referring Provider Nurse Practitioner Women's Health; Visit Provider Nurse Practitioner Women's Health
DX: Z12.4 Encounter for screening for malignant neoplasm of cervix (principal)
CPT/HCPCS: 87624; 88175; G0145

== ENCOUNTER → 2025-07-22 | Outpatient (CLI) | payer BC, SELFPAY ==
--- NOTE | 2025-07-22 14:53 | MRI_ITS ---
PROCEDURE: LOWER EXT JOINT ONLY (ROUTINE) 07/22/2025 REASON FOR EXAM: RULE OUT ACL OR MM TEAR TECHNIQUE: MRI of the right knee without contrast. Multiplanar and multisequence images were obtained without IV contrast administration. COMPARISON: COMPARISON : Right knee series 07/21/2020 FINDINGS: Bone and bone Marrow: No significant acute osseous signal change is seen. Effusion: A small right knee joint effusion is noted. A small Black's cyst is also noted. Soft Tissues: No soft tissue mass is noted. No abnormal muscle signal is seen. Ligaments and Tendons: Complete disruption of the anterior cruciate ligament is seen. The posterior cruciate ligament appears intact. Lateral collateral ligaments appear intact. The visualized extensor tendons appear intact. A complex tear of the posterior horn of the medial meniscus is seen, extending both tube tibial and femoral surfaces. No articular cartilage thinning or defect is noted. MRI/Lower Ext Joint Only (Routine) IMPRESSION: 1. Anterior cruciate ligament disruption. 2. Small joint effusion. 3. Small Black's cyst. 4. Posterior horn medial meniscal tear. Reading Location: [facility]
== END | disposition home or self-care (01) ==
PROVIDERS: PCP Family Medicine; Referring Provider Orthopaedic Surgery Sports Medicine; Visit Provider Orthopaedic Surgery Sports Medicine
DX: M25.561 Pain in right knee (principal)
CPT/HCPCS: 73721

== ENCOUNTER 2025-08-19 09:42 | Day surgery (SDC) | payer BC, SELFPAY ==
[2025-08-19] VITALS (9 sets, daily range): BP systolic 94–117; BP diastolic 47–76; PULSE 49–64; RESP 12–18; TEMP 36.1–36.2; O2SAT 98–100; BMI 22.8
[2025-08-19] MEDS: Lactated Ringers 1,000 ML 15 ML IV (10:06)
[2025-08-19 10:11] LABS: Internal QC Validated? YES +Cl - CLEAR BKGD; Pregnancy, Urine Negative Negative; Record Kit Lot#,Urine Preg 0000964736
--- NOTE | 2025-08-19 10:18 | PRE.ANES_ITS ---
ASA Classification* ASA Classification ASA Classification: 1 Assessment & Plan Anesthesia* Anesthesia Assessment Anesthesia Assessment: Discussed sedation and/or anesthesia options, risks, benefits, and alternatives with patient/parents/legal guardian/POA. Questions invited. The patient/parents/legal guardian/POA seems to understand and agrees to proceed with anesthesia plan. Reviewed the physical assessment, medical history, allergy history and patient home medications list prior to surgery/procedure/anesthetic and documented any changes. Performed airway and anesthesia risk assessments. Anesthesia Type Anesthesia Type: General and Block History Source History Obtained from:: Patient and Chart Anesthesia Focused Assessment* Temperature: 97 F Pulse Rate: 56 Blood Pressure: 117/76 Respiratory Rate: 16 Pulse Ox: 100 Oxygen Delivery Method: Room Air Airway Assessment Mouth opens: >3 cm Mallampati Score: II Teeth Condition: Intact Neck Range of motion (ROM): Full ROM Labs Anesthesia Preop lab: CBC WBC, (4.4-11.0) 13.3 K/mm3 H 12/29/18, 06:45 RBC, (4.2-5.4) 3.37 M/mm3 L 12/29/18, 06:45 Hgb, (12.0-15.0) 9.3 g/dl L 12/29/18, 06:45 Hct, (37-47) 28.5 % L 12/29/18, 06:45 Plt Count, (150-450) 186 K/mm3 12/29/18, 06:45 CHEMISTRY Potassium, (3.5-5.1) 4.1 mmol/L 12/29/18, 06:45 Sodium, (136-145) 141 mmol/L 12/29/18, 06:45 BUN, (7-18) 16 mg/dL 12/29/18, 06:45 Creatinine, (0.55-1.02) 0.85 mg/dL 12/29/18, 06:45 Glucose, (74-106) 88 mg/dL 12/29/18, 06:45 TSH, (0.358-3.74) 1.77 uIU/mL 04/26/21, 09:18 COAG PT, (11.7-14.9) 12.4 SECONDS 12/26/18, 11:00 Urine Test Negative Negative Today, 09:55 Pre-Assessment Diagnosis/Proposed Procedure Planned Operative Procedure(s): (R) Right knee Arthroscopy, anterior cruciate ligament reconstruction, medial meniscus repair Anesthesia History Anesthesia History - watch inspector: Anesthesia History - watch inspector Hx Hospitalization No 08/05/25 08:57 Any Problems With Anesthesia No 08/05/25 08:57 Cholinesterase deficiency No 08/05/25 08:57 You/Your Family Experience No 08/05/25 08:57 fever (hyperthermia) with Relationship Recent Exposure to Contagious No 08/19/25 10:02 Disease Does patient have nerve No 08/05/25 08:57 stimulator Patient instructed to have device shut off --Does patient have Pacemaker No 08/19/25 10:02 or ICD? When Was Last Pacemaker Check QUESTION #4 FULL TEXT: You/Your Family Experience fever (hyperthermia) with Anesthesia Last Oral Intake Last Oral intake: Last Oral Intake NPO since 21:30 08/19/25 10:02 Meds taken in AM with sips of water? Meds patient instructed to take am of surgery PONV PONV - watch inspector: PONV - watch inspector Female Yes 08/05/25 08:57 HX of Motion Sickness No 08/05/25 08:57 HX of N/V After Surgery No 08/05/25 08:57 Non-Smoker Yes 08/05/25 08:57 Duration of Surgery greater Yes 08/05/25 08:57 than 60 minutes Number of Risk Factors 3 08/05/25 08:57 PONV Score Moderate Risk 08/05/25 08:57 Height & Weight Height & Weight: Anesthesia: Height & Weight Height 5 ft 7 in 08/19/25 10:02 Weight: 66 kg 08/19/25 10:02 Body Mass Index (BMI) 22.8 08/19/25 10:02 Respiratory Assessment Respiratory Assessment - watch inspector: Respiratory Tract Infection Hx - watch inspector Hx Respiratory Tract Infection No 08/05/25 08:57 STOP Sleep Apnea STOP Sleep Apnea - watch inspector: STOP Sleep Apnea - watch inspector Hx Hypertension No 08/05/25 08:57 Hx Sleep Apnea No 08/05/25 08:57 CPAP BIPAP Do you snore loudly (louder No 08/05/25 08:57 than talking or can be heard Do you often feel tired/ No 08/05/25 08:57 fatigued/ sleepy during daytime? Has anyone observed you stop No 08/05/25 08:57 breathing during sleep? STOP Results Negative 08/05/25 08:57 QUESTION #5 FULL TEXT : Do you snore loudly (louder than talking or can be heard through closed doors)? 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 Specify any problems Hx of Preganancy in last 3 No 08/05/25 08:57 Months Nurse Filling Out Transfusion VCHRISTIN 08/05/25 08:57 & Questions: Date: 08/05/25 08/05/25 08:57 Time: 08:58 08/05/25 08:57 Patient unable to answer at this time (ie. confused, unrespo /Reproduction History /Reproductive History - watch inspector: /Reproductive Hx- watch inspector Hx Now No 08/05/25 08:57 Gestational Age (in weeks): EDC: Hx Hx Para Hx Section SAB No 08/05/25 08:57 Active Medications Active Medications: Current Medications Generic Name Dose Route Start Last Admin Trade Name Freq PRN Reason Stop Dose Admin Cefazolin Sodium 2 gm/ Sodium 110 mls @ 200 mls/hr 08/19/25 11:15 Chloride IV 08/19/25 11:47 INTRAOP ONE Lactated Ringer's 1,000 mls @ 15 mls/hr 08/19/25 10:00 08/19/25 10:06 IV 15 mls/hr .Q48H DIONNA Administration PFSH Medical History History of steroid therapy Non-smoker Tear of medial meniscus of right knee Complete tear of anterior cruciate ligament of right knee Right knee pain Abnormal Pap smear of cervix Home Medications Medication Instructions Recorded Last Taken Type multivitamin 1 tab PO DAILY 04/20/2207/28 History Allergy/AdvReac Type Severity Reaction Status Date / Time No Known Allergies Allergy Verified 08/19/25 10:02 Family History Grandfather Lymphoma Mother Hypertension Surgical History Hx of eye surgery History of wisdom tooth extraction S/P dilation and curettage History of colposcopy Social History current occupational status: employed current occupation: [employer] Smoking Status: Never smoker alcohol intake: current details: occasionally substance use type: does not use caffeine: No what type of physical activity do you participate in: other details: crossfit frequency: 5-6 times per week seatbelt use: always do you feel safe at home: Yes additional social history: Fgltynn-Idrdui-Lgjsobwovhmkwf of [employer] Review of Systems (Anesthesia) ROS Narrative System reviewed and no additional complaints, except as documented.
--- NOTE | 2025-08-19 10:52 | PCM.HP.STD ---
HPI - General HPI Narrative SHWETA WYATT, is a 39 F who presents for right knee arthroscopy, anterior cruciate ligament reconstruction, medial meniscus repair. no change to h and p. right knee marked confirmed by the patient. ok for block. rab, post op instructions and narcotic counselling. ok to proceed. no further questions or concerns. MR#: [id number] Acct: [id number] Name: SHWETA WYATT Rep #: [id number] : 1985 Provider: Dr. Jose Luo MD Age/Sex: 39/F Location: [facility] [place] Status: Signed Intake Vital Signs 07/23/2509:21 Height 5 ft 7 in Intake Visit Reasons: RIGHT KNEE Chief Complaint: MRI Review Accompanied by: Self Is patient in pain?: No Allergies No Known Allergies Allergy (Verified 07/23/25 10:37) Medications Medication Instructions Recorded Confirmed Type multivitamin 1 tab PO DAILY 04/20/22 07/23/25 History PFSH Medical History (Updated 07/23/25 @ 10:55 by Jose Luo MD) Tear of medial meniscus of right knee Complete tear of anterior cruciate ligament of right knee Right knee pain Abnormal Pap smear of cervix Surgical History S/P dilation and curettage History of colposcopy Family History Grandfather Lymphoma Mother Hypertension Social History current occupational status: employed 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 Jose Luo MD 07/23/25 7945. Part of today’s visit was documented by [ ], acting as scribe. SHWETA WYATT is a 39 year old F here today for Supplemental Info [facility] [address] [facility] [place] [address] Lower Ext Joint Only (Routine) MR#: [id number] Acct: [id number] Name: SHWETA WYATT Rep #: [id number] : 1985 F 39 From: Alex Bauer MD PCP: Dr. Giovana Rader MD Status: REG CLI Study: Lower Ext Joint Only (Routine) Date of Exam: 07/22/25 Exam# [id number] Ordering Dr: Jose Luo MD PROCEDURE: LOWER EXT JOINT ONLY (ROUTINE) 07/22/2025 REASON FOR EXAM: RULE OUT ACL OR MM TEAR TECHNIQUE: MRI of the right knee without contrast. Multiplanar and multisequence images were obtained without IV contrast administration. COMPARISON: COMPARISON : Right knee series 07/21/2020 FINDINGS: Bone and bone Marrow: No significant acute osseous signal change is seen. Effusion: A small right knee joint effusion is noted. A small Black's cyst is also noted. Soft Tissues: No soft tissue mass is noted. No abnormal muscle signal is seen. Ligaments and Tendons: Complete disruption of the anterior cruciate ligament is seen. The posterior cruciate ligament appears intact. Lateral collateral ligaments appear intact. The visualized extensor tendons appear intact. A complex tear of the posterior horn of the medial meniscus is seen, extending both tube tibial and femoral surfaces. No articular cartilage thinning or defect is noted. MRI/Lower Ext Joint Only (Routine) IMPRESSION: 1. Anterior cruciate ligament disruption. 2. Small joint effusion. 3. Small Black's cyst. 4. Posterior horn medial meniscal tear. Reading Location: [place] [address] I independently reviewed the imaging. Concur with radiologist report. Coding Level of Care Code Off vis,est,level 4 Diagnoses Complete tear of anterior cruciate ligament of right knee S83.511A Tear of medial meniscus of right knee S83.241A Assessment and Plan Assessment and Plan (1) Complete tear of anterior cruciate ligament of right knee: Status: Acute Plan: 39-year-old female with a right knee ACL tear and medial meniscus tear. My recommendation given the patient's full-thickness tear as well as associated medial meniscus tear on the patient's high physical demands including doing CrossFit would be to have surgery for this to reconstruct the ligament and repair of the medial meniscus tear. The other option would be surgery this would result in higher rates of long-term damage to the knee osteoarthritis further meniscus tear and knee instability making return to sport very difficult for the patient. Given the patient's age and no high-grade instability I would not recommend adding on a lateral extra-articular tenodesis procedure. Patient understands wished to go ahead with surgery in the form of right knee arthroscopy, anterior cruciate ligament reconstruction, medial meniscus repair. My preferred graft here and the patient agrees to be a quadriceps tendon autograft. 6 weeks postoperatively on crutches with a knee brace given the meniscus repair. The patient understands wished to go ahead. Specific risks to surgery include a graft tear rate of 5% quadriceps pain or tear and other problems associate with surgery typically would put the patient on aspirin twice daily for VTE prophylaxis. Pros and cons risks and benefits were discussed with the patient including but not limited to infection, pain, stiffness, bleeding, damage to surrounding structures, neurovascular injury, recurrence or retear, failure or wear of hardware or fixation, instability, fracture, deep vein thrombosis and pulmonary embolism, anesthetic risks, , patient dissatisfaction, need for further surgery and other risks. Patient understood and wished to proceed with surgery, and signed the informed consent documentation. (2) Tear of medial meniscus of right knee: Status: Acute [facility] Medical History History of steroid therapy Non-smoker Tear of medial meniscus of right knee Complete tear of anterior cruciate ligament of right knee Right knee pain Abnormal Pap smear of cervix Home Medications Medication Instructions Recorded Last Taken Type multivitamin 1 tab PO DAILY 04/20/22 08/18/25 History Allergy/AdvReac Type Severity Reaction Status Date / Time No Known Allergies Allergy Verified 08/19/25 10:02 Family History Grandfather Lymphoma Mother Hypertension Surgical History Hx of eye surgery History of wisdom tooth extraction S/P dilation and curettage History of colposcopy Social History current occupational status: employed 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 Smoking Status: Never smoker alcohol intake: current details: occasionally substance use type: does not use caffeine: No what type of physical activity do you participate in: other details: crossfit frequency: 5-6 times per week seatbelt use: always do you feel safe at home: Yes additional social history: Aemnqjz-Nthuvh-Xhydxbcoxqeypx of [employer] Vital Signs Vital Signs Vital Signs: 08/19/25 10:02 08/19/25 10:02 08/19/25 10:19 Temperature 97 F L 97 F L Temperature Source Temporal Pulse Rate 56 L 56 L Respiratory Rate 16 16 Respiratory Pattern Normal Blood Pressure 117/76 117/76 Blood Pressure Mean 89 Blood Pressure Source Monitor Blood Pressure Position Semi-Fowlers Blood Pressure Location Left Arm Pulse Ox 100 100 Oxygen Delivery Method Room Air Room Air Weight Weight: 145 lb 8.081 oz Body Mass Index (BMI) 22.8 Results Lab / Micro Data Labs: Laboratory Results - last 24 hr 08/19/25 09:55: Urine Test Negative
[2025-08-19] MEDS: Midazolam 2 MG/2 ML Syringe IV (10:53)
[2025-08-19] MEDS: Cefazolin 1 GM/5 ML Vial 2 GM IV (11:14)
[2025-08-19] MEDS: Lidocaine 1% (5 ml sdv) 5 ML Vial 6 ML IV (11:19)
[2025-08-19] MEDS: Epinephrine (1 mg/ml) 1 MG/ML VIAL (11:48)
[2025-08-19] MEDS: fentaNYL 100 MCG/2 ML Ampul IV (12:30)
--- NOTE | 2025-08-19 13:16 | DCINST_ITS ---
Discharge Instructions Diet Discharge Diet: No restrictions Activity Discharge Activity: Use Crutches Ice area for (Minutes): 10 Weight Bearing Status: Weight bearing as tolerated Lifting Restrictions: WBAT with leg straight in brace locked, ok to remove brace at rest Keep extremity elevated above heart level: Operative Extremity Additional Activity Instructions:: passive ROM with PT 0-90, sleep in brace Dressing / Incision Call your doctor if your incision/area has: Continuous Slow Oozing, Sudden Incre ased Bleeding, Increased Pain/ Swelling, Increased Redness, Foul Smelling Discharge and Swelling at the incision site Call your doctor if you observe: Fever of 101 or Higher, Coldness, Increased Pain and Numbness or Tingling Remove Dressing in: leave in place till F/U Cleanse incision/area with: Do not get Incision Wet Follow Up Care Please Follow Up With: Jose Luo MD When: within 2 weeks Test Results: Test results from this visit will be discussed in further detail at your follow- up appointment, if applicable. Discharge Plan Admission Attending Provider: Jose Luo Primary Care Provider: Giovana Rader Instructions Patient Instructions: ACL Injury Surg Print Language: Kinyarwanda Discharge Orders/Prescriptions Prescriptions: New oxycodone-acetaminophen [Endocet] 5-325 mg tablet 1 tab PO Q4H MDD 6 PRN (Reason: pain) 5 Days Qty: 20 0RF No Action multivitamin Tablet 1 tab PO DAILY Referrals / Follow Up: Giovana Rader MD [Primary Care Provider, Family Practice] Jose Luo MD [Med Staff - Active Staff, Orthopedics] Disposition Disposition (needs filled in before D/C Order can be placed): Home, Self Care
--- NOTE | 2025-08-19 13:20 | OP.PCM_ITS ---
Procedures Musculoskeletal [id number]: Other Procedure See Report Operative Report (Standard) Operative Information Date of Procedure: 08/19/25 Pre-Operative Diagnosis: Right knee ACL tear and medial meniscus tear Post-Operative Diagnosis: Same Surgery/Procedure Performed: Right knee arthroscopy ACL reconstruction quadriceps tendon autograft and medial meniscus repair rug cleaner hand: Yes Radiation Control Worker: [email or web address] Tasks completed by certified physician assistant: Retracting Type of Anesthesia: Block,Regional and General RN Documented Start/Stop Times: Operation Date: 08/19/25 11:15 Case Time Into Pre-Op 08/19/25 09:50 Anesthesia Start 08/19/25 11:14 Into Room 08/19/25 11:14 Procedure Start 08/19/25 11:32 Procedure End 08/19/25 13:12 Anesthesia End 08/19/25 13:18 Out of Room 08/19/25 13:18 Procedure Start Time: 11:32 Procedure Stop Time: 13:12 Select all DRAINS/GRAFTS/IMPLANTS that apply: Graft Graft details: ACL quads tendon auto graft Estimated Blood Loss: 50 Specimen collected: No Description of surgery: Patient brought to the operating room theater. Placed supine on the table. General anesthesia induced. 2 g IV Ancef administered prior to the procedure. SCD on the nonoperative leg. All bony prominences padded. Tourniquet applied to right thigh appropriately padded. Lower extremity prepped and draped in the usual sterile fashion allowing over 3 minutes drying time prior to draping. Stress positioner to the patient's right side. Preoperative timeout performed to confirm the site patient and the surgery. Began by elevating the limb inflating the tourniquet to 250 mmHg. Use standard anterolateral and anteromedial arthroscopy portals. Did a full diagnostic a rthroscopy. Cartilage in all 3 compartments was normal. No loose bodies medial lateral gutters entered. Lateral compartment was normal no tears normal cartilage. ACL had a full-thickness tear I debrided the remnant identified the empty lateral back wall identified the capsular reflection. I then entered in the medial compartment. Used a pie crusting trephination technique at the proximal MCL to open up the compartment slightly. There was a complex radial tear at the posterior horn. Root intact. Did a partial meniscectomy for the inner third 5% total surface area of meniscus. Also horizontal component, and a flap near the root, debrided to smooth edges. I then used a rasp at the capsule side and at the horizontal component. I then used 4 Arthrex all inside fiber stitch 1.5 mm meniscus repair devices in a vertical mattress fashion, barrel type technique, and cut the sutures short. This was stable and solid I took arthroscopy pictures throughout. I then turned my attention to obtaining the quadriceps tendon autograft. I made a transverse incision centered at the quadriceps tendon insertion at the patella. Carried the dissection down through skin and subcutaneous tissue ach ieved meticulous hemostasis. Identified the distal quadriceps took a one third central strip of this for about 7 cm long and a 9 mm size graft with the quadriceps pro Arthrex harvester. Truncated the graft to get to the back table. Shortness to 65 mm long. I used the standard technique with the fiber stitch and whip stitching fiber tags on each hand with the button on the femoral side on the ABS loop on the tibial side. This measured 9.5mm on each side. Graft length again was 65 mm. Graft placed on tension. I turned my attention back to the knee. I used the all inside retrograde drill ing technique using a third-generation flip cutter drills. Placed the femoral tunnel low and posterior at the origin for the prior ACL retrograde drilled for 3 cm for a 4 cm long total tunnel, 9.5mm, cleared away any bone dust and passed the sutures out the anterior medial portal which I had also placed a passport cannula. I then drilled for the tibial side in line with the anterior horn lateral meniscus. Again the tunnel length was 5 cm in a retrograde drilled 9.5 mm for 3 cm total tunnel length cleared away any bone dust and then passed the suture through the anterior medial portal. I then passed the ACL up into the femoral tunnel and then back down into the tibial tunnel flipping the button on the lateral aspect of the femur. I had marked the graft at 2.5 cm and then pulled on the free ends of the femoral side to deliver the graft into the tunnel. I then cycled the knee 15 times and then attach the tibial button to the ABS button loop and pulled on the free ends of the suture to tighten the graft up in place. This achieved excellent fixation limited the pivot shift and the Madhu. Suture was cut short. Internal brace sutures brought through the ABS button, then attach this without tension in full extension to a Arthrex 4.75 mm bio composite swivel lock anchor for the internal brace construct. The tourniquet let down meticulous hemostasis achieved wounds irrigated. Subcutaneous tissue closed with 2-0 Vicryl suture skin with 3-0 Monocryl. Skin cleaned with wet dry dressing followed by application of Steri-Strips Adaptic 4 x 4 gauze ABD dressing and Eldon wrap with hinged knee brace locked in full extension. Patient woken up from a general anesthetic transfer off the operating table taken to postanesthetic care unit in stable condition. All sponge needle ins trument counts were correct no complications plan to the patient discharged home according to day surgery criteria follow-up in the office this week. Decided on no VTE prophylaxis patient is not on oral contraceptive pills non-smoker never had any VTE and no family history either, health patient who does cross fit and is quite active. cpt 13886, [id number] Surgical Findings: as above Complications Complications: No Admit VTE Documentation VTE Present on Admission: No VTE Mechan Device Prophylaxis: SCD's VTE Pharm Prophylaxis ordered?: No Reason prophylaxis not ordered: Treatment Not Indicated
--- NOTE | 2025-08-19 13:23 | PCM.POST.ANE ---
Anesthesia: Postop Eval I Current Vital Signs Temperature: 97.1 F Pulse Rate: 64 Blood Pressure: 113/66 Respiratory Rate: 18 Pulse Ox: 100 Assessment Airway patent: Yes Spontaneous unlabored respirations: Yes nausea: No Vomiting: No Anesthesia Complication: No Fluid Hydration Crystalloid volume administer (ml): 1,300 Total IV fluid infused: 1,300 Progress Note Anesthesia document: Postop Eval 1 completed: Yes
--- NOTE | 2025-08-19 15:50 | POSTOPAN2_ITS ---
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 Spontaneous unlabored Yes 08/19/25 13:23 OUTSIDE SALES REPRESENTATIVE.[email or web address] respirations Mental status nausea No 08/19/25 13:23 OUTSIDE SALES REPRESENTATIVE.[email or web address] Vomiting No 08/19/25 13:23 OUTSIDE SALES REPRESENTATIVE.[email or web address] Anesthesia Postop Eval I: Fluid Summary Crystalloid volume administer 1,300 08/19/25 13:23 OUTSIDE SALES REPRESENTATIVE.[email or web address] (ml) Colloids volume administered ( ml) Blood Product volume administered (ml) Total IV fluid infused 1,300 08/19/25 13:23 OUTSIDE SALES [email or web address].[email or web address] Anesthesia Postop Eval I: Summary Notes Anesthesia Complication No 08/19/25 13:23 OUTSIDE SALES [email or web address].[email or web address] Anesthesia Complication Comment: Post-operative progress note Anesthesia: Postop Eval II Evaluation Mental status: Awake and Calm Pain Level: 1 nausea: No Vomiting: No Complications Anesthesia Complication: No
--- NOTE | 2025-08-19 15:50 | PCM.POSTANE2 ---
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 Spontaneous unlabored Yes 08/19/25 13:23 GOLF CLUB [email or web address] respirations Mental status nausea No 08/19/25 13:23 GOLF CLUB [email or web address].[email or web address] Vomiting No 08/19/25 13:23 GOLF CLUB [email or web address].[email or web address] Anesthesia Postop Eval I: Fluid Summary Crystalloid volume administer 1,300 08/19/25 13:23 GOLF CLUB [email or web address] (ml) Colloids volume administered ( ml) Blood Product volume administered (ml) Total IV fluid infused 1,300 08/19/25 13:23 GOLF CLUB [email or web address] Anesthesia Postop Eval I: Summary Notes Anesthesia Complication No 08/19/25 13:23 GOLF CLUB [email or web address].[email or web address] Anesthesia Complication Comment: Post-operative progress note Anesthesia: Postop Eval II Evaluation Mental status: Awake and Calm Pain Level: 1 nausea: No Vomiting: No Complications Anesthesia Complication: No
== END 2025-08-19 16:27 | disposition home or self-care (01) ==
LOC: SDC 09:50 → AC 09:51
PROVIDERS: Anesthesiology; PCP Family Medicine; Referring Provider Orthopaedic Surgery Sports Medicine; Visit Provider Orthopaedic Surgery Sports Medicine
PROC: (CPT 29888; principal; 2025-08-19 11:00)
DX: S83.511A Sprain of anterior cruciate ligament of right knee, initial encounter (principal); S83.241A Other tear of medial meniscus, current injury, right knee, initial encounter; X58.XXXA Exposure to other specified factors, initial encounter
CPT/HCPCS: 29888; 29882; 01400; 64450; 81025; C1713; J2405